=== PATIENT | female | born 1930 | race Caucasian/White ===

== ENCOUNTER 2017-08-08 11:52 | Emergency (ER) | payer MEDICARE, BC ==
[2017-08-08 11:57] VITALS: BP 138/58
--- NOTE | 2017-08-08 12:33 | ER Document Report ---
ED Medical Screen (RME) - General Chief Complaint: Abnormal Lab Results Stated Complaint: ABNORMAL BLOOD WORK Time Seen by Provider: 08/08/17 12:29 Notes: Patient was seen here 2 days ago and diagnosed with pneumonia. Patient is currently at home taking antibiotics. Blood cultures returned positive today for gram positives cocci. Patient was instructed to return to the emergency department for reexamination. She states that she does not feel any better than her previous visit. She states she feels very weak. She denies any pain. She says she has occasional shortness of breath but not currently. She has a mild cough that is nonproductive. No vomiting or diarrhea. TRAVEL OUTSIDE OF THE [place] IN LAST 30 DAYS: No - Related Data Allergies/Adverse Reactions: No Known Allergies Allergy (Verified 08/08/17 11:55) Past Medical History - Social History Chew tobacco use (# tins/day): No Frequency of alcohol use: None Drug Abuse: None - Past Medical History Cardiac Medical History: Reports: Hx Hypertension Endocrine Medical History: Reports: Hx Diabetes Mellitus Type 2 Renal/ Medical History: Denies: Hx Peritoneal Dialysis GI Medical History: Reports: Hx Gastroesophageal Reflux Disease Past Surgical History: Reports: Hx Appendectomy, Hx Cholecystectomy, Hx Hysterectomy, Hx Mastectomy - left side - Immunizations Hx Diphtheria, Pertussis, Tetanus Vaccination: Yes History of Influenza Vaccine for 07/2017 - 12/2017 Season: Yes Physical Exam - Vital signs Vitals: Temp Pulse Resp BP Pulse Ox 97.8 F 85 18 138/58 H 94 08/08/17 11:56 08/08/17 11:56 08/08/17 11:56 08/08/17 11:56 08/08/17 11:56 Course - Vital Signs Vital signs: Temp Pulse Resp BP Pulse Ox 97.8 F 85 18 138/58 H 94 08/08/17 11:56 08/08/17 11:56 08/08/17 11:56 08/08/17 11:56 08/08/17 11:56
[2017-08-08 13:20] LABS: ABSOLUTE BASOPHILS # (AUTO) 0.1 10^3/uL (0.0-0.2); ABSOLUTE EOSINOPHILS # (AUTO) 0.2 10^3/uL (0.0-0.6); ABSOLUTE LYMPHOCYTES (AUTO) 2.6 10^3/uL (0.5-4.7); ABSOLUTE MONOCYTES (AUTO) 0.5 10^3/uL (0.1-1.4); ABSOLUTE NEUT (AUTO) 3.6 10^3/uL (1.7-8.2); BASOPHILS % (AUTO) 0.8 % (0-2); EOSINOPHILS % (AUTO) 2.7 % (0-6); HEMATOCRIT 39.6 % (36.0-47.0); HEMOGLOBIN 13.4 g/dL (12.0-15.5); HGB HCT DIFFERENCE 0.6; LYMPHOCYTES % (AUTO) 37.4 % (13-45); MEAN CORPUSCULAR HEMOGLOBIN 28.9 pg (27.0-33.4); MEAN CORPUSCULAR HGB CONC 33.9 g/dL (32.0-36.0); MEAN CORPUSCULAR VOLUME 85 fl (80-97); RED BLOOD COUNT 4.65 10^6/uL (3.72-5.28); RED CELL DISTRIBUTION WIDTH 13.6 % (11.5-14.0); SEGMENTED NEUTROPHILS % (AUTO) 52.1 % (42-78)
[2017-08-08 13:35] LABS: ALANINE AMINOTRANSFERASE 33 U/L (9-52); ALKALINE PHOSPHATASE 76 U/L (38-126); ANION GAP 14 (5-19); ASPARTATE AMINO TRANSFERASE 20 U/L (14-36); BILIRUBIN,DIRECT 0.3 mg/dL (0.0-0.4); BILIRUBIN,TOTAL 0.4 mg/dL (0.2-1.3); BLOOD UREA NITROGEN 16 mg/dL (7-20); CALCIUM 9.6 mg/dL (8.4-10.2); CARBON DIOXIDE 26 mmol/L (22-30); CHLORIDE 99 mmol/L (98-107); CREATININE RESULT 0.93 mg/dL (0.52-1.25); GLUCOSE 156 mg/dL (75-110); POTASSIUM 4.5 mmol/L (3.6-5.0); SODIUM 138.7 mmol/L (137-145); TOTAL PROTEIN 6.7 g/dL (6.3-8.2)
--- NOTE | 2017-08-08 13:39 | ER Document Report ---
ED General - General Chief Complaint: Abnormal Lab Results Stated Complaint: ABNORMAL BLOOD WORK Time Seen by Provider: 08/08/17 12:29 TRAVEL OUTSIDE OF THE [place] IN LAST 30 DAYS: No - HPI Notes: Patient is an 87-year-old female with a history of dementia who presents the ED for recheck and call back because of a preliminary blood culture lab that came back as gram-positive cocci. + occ dry cough. Patient is accompanied to the ED with daughter. Patient was placed on Levaquin and 1 tablet of Diflucan prior to discharge 2 days ago. Daughter states that she is no longer complaining of any pain, is ambulatory, eating and drinking without any difficulties, urinating and having normal bowel movements, and otherwise at baseline at home. Overall, daughter believes that she is doing much better than 2 days ago. Per daughter: denies any headache, fever, changes in vision/ speech/mentation/hearing, URI, sore throat, chest pain, syncope, shortness of breath, wheeze, dyspnea, abdominal pain, nausea/vomiting/diarrhea, dysuria, hematuria, or rash. - Related Data Allergies/Adverse Reactions: No Known Allergies Allergy (Verified 08/08/17 11:55) Past Medical History - Social History Smoking Status: Never Smoker Chew tobacco use (# tins/day): No Frequency of alcohol use: None Drug Abuse: None Family History: Reviewed & Not Pertinent Patient has suicidal ideation: No Patient has homicidal ideation: No - Past Medical History Cardiac Medical History: Reports: Hx Hypertension Endocrine Medical History: Reports: Hx Diabetes Mellitus Type 2 Renal/ Medical History: Denies: Hx Peritoneal Dialysis GI Medical History: Reports: Hx Gastroesophageal Reflux Disease Past Surgical History: Reports: Hx Appendectomy, Hx Cholecystectomy, Hx Hysterectomy, Hx Mastectomy - left side - Immunizations Hx Diphtheria, Pertussis, Tetanus Vaccination: Yes Review of Systems - Review of Systems Notes: see hpi for pertinent positives/negative per daughter. -: Yes ROS unobtainable due to patient's medical condition Physical Exam - Vital signs Vitals: Temp Pulse Resp BP Pulse Ox 97.8 F 85 18 138/58 H 94 08/08/17 11:56 08/08/17 11:56 08/08/17 11:56 08/08/17 11:56 08/08/17 11:56 Notes: PHYSICAL EXAMINATION: GENERAL: Well-appearing, well-nourished and in no acute distress. alert, talkative, cooperative. HEAD: Atraumatic, normocephalic. EYES: Pupils equal round and reactive to light, extraocular movements intact, sclera anicteric, conjunctiva are normal. ENT: Nares patent and without discharge. oropharynx clear without exudates. No tonsilar hypertrophy or erythema. Moist mucous membranes. NECK: Normal range of motion, supple without lymphadenopathy. No rigidity/ meningismus. LUNGS: Breath sounds clear to auscultation bilaterally and equal. No wheezes rales or rhonchi. HEART: Regular rate and rhythm without murmurs, rubs, gallops. ABDOMEN: Soft, nontender, nondistended abdomen. No guarding, no rebound. No masses appreciated. Normal bowel sounds present. No CVA tenderness bilaterally. Musculoskeletal: FROM to passive/active. Strength 5+/5. Extremities: No cyanosis, clubbing, or edema b/l. Peripheral pulses 2+. Capillary refill less than 3 seconds. NEUROLOGICAL: Cranial nerves grossly intact. Normal speech, normal gait. Normal sensory, motor exams PSYCH: Normal mood, normal affect. SKIN: Warm, Dry, normal turgor, no rashes or lesions noted. Course - Re-evaluation Re-evalutation: 08/08/17 14:[address] Teran: Patient is an afebrile, well-hydrated, 87-year-old female who presents the ED with ongoing pneumonia which is being covered with Levaquin. Patient had a noted preliminary blood culture come back as gram-positive cocci. Vitals are stable w/o any tachycardia or tachypnea and an o2 of 97% on RA. CXR remains relatively unchanged. PE is otherwise unremarkable at this time. Patient appears to be doing well without any respiratory distress or compromise. CBC, CMP are both unremarkable for any acute pathology. At this time, patient does not appear to be having any worsening condition since her evaluation 2 days ago. We will discharge home in stable condition with continued Levaquin as directed with C. difficile precautions reviewed. Conservative measures otherwise with close monitoring. Recheck with your PCM later this week. Return to the ED with any worsening/concerning symptoms otherwise as reviewed in discharge. Daughter is in agreement. - Vital Signs Vital signs: Temp Pulse Resp BP Pulse Ox 97.8 F 85 18 138/58 H 94 08/08/17 11:56 08/08/17 11:56 08/08/17 11:56 08/08/17 11:56 08/08/17 11:56 - Laboratory Result Diagrams: 08/08/17 13:05 08/08/17 13:05 Laboratory results interpreted by me: 08/08/17 13:05 Est GFR (Non-Af Amer) 57 L Glucose 156 H Discharge - Discharge Clinical Impression: Pneumonia Qualifiers: Pneumonia type: due to unspecified organism Laterality: left Lung location: lower lobe of lung Qualified Code(s): J18.1 - Lobar pneumonia, unspecified organism Condition: Stable Disposition: HOME, SELF-CARE Instructions: Levofloxacin, Pneumonia ([facility]) Additional Instructions: Maintain adequate fluid intake Take meds as directed tylenol/ibuprofen as needed over the counter cold medication as needed for symptoms Humidified air may help along with cool-night air for any coughing F/u: with your PCM in 2-3 days for a recheck Return to the ED with any worsening symptoms and/or development of fever, headache, chest pain, palpitations, syncope, worsening cough, shortness of breath, trouble breathing, abdominal pain, n/v/d, blood in stool/urine, not eating/drinking, fatigue, or other worsening symptoms that are concerning to you. Forms: Elevated Blood Pressure Referrals: VLADISLAV LAW MD [ACTIVE STAFF] - Follow up in 3-5 days
--- NOTE | 2017-08-08 13:54 | RADIOLOGY REPORT (SQ) ---
EXAM DESCRIPTION: CHEST PA/LAT COMPLETED DATE/TIME: 08/08/2017 1:41 pm REASON FOR STUDY: weak/cough COMPARISON: 08/06/2017, 07/20/2010 NUMBER OF VIEWS: Two view. TECHNIQUE: Frontal and lateral radiographic views of the chest acquired. LIMITATIONS: None. FINDINGS: LUNGS AND PLEURA: Persistent minimal opacity at the left base either contiguous with or a djacent to the left hemidiaphragm which also obscures the left costophrenic angle. Unchanged since t he recent chest x-ray. MEDIASTINUM AND HILAR STRUCTURES: No masses or contour abnormalities. HEART AND VASCULATURE: Heart normal size. No evidence for failure. BONY STRUCTURES: No acute findings. HARDWARE: None. OTHER: No other significant finding. IMPRESSION: Opacity left base. Differential includes atelectasis or infiltrate with possible associ ated small effusion or possibly developing chronic change or scarring since 2009. Recommend continue d followup by chest x-ray. TECHNICAL DOCUMENTATION: JOB ID: [id number] [employer]- All Rights Reserved
== END 2017-08-08 14:25 | disposition home or self-care (01) ==
LOC: ER 11:52
DX: J18.1 Lobar pneumonia, unspecified organism (principal); F03.90 Unspecified dementia, unspecified severity, without behavioral disturbance, psychotic disturbance, mood disturbance, and anxiety; I10 Essential (primary) hypertension; E11.9 Type 2 diabetes mellitus without complications; Z90.49 Acquired absence of other specified parts of digestive tract; Z90.710 Acquired absence of both cervix and uterus; Z90.12 Acquired absence of left breast and nipple
CPT/HCPCS: 36415; 71020; 80053; 85025; 99284

== ENCOUNTER 2017-08-24 17:01 | Emergency (ER) | payer MEDICARE, BC ==
--- NOTE | 2017-08-24 18:08 | RADIOLOGY REPORT (SQ) ---
EXAM DESCRIPTION: KUB/ABDOMEN (SINGLE VIEW) COMPLETED DATE/TIME: 08/24/2017 5:49 pm REASON FOR STUDY: abd pain distention COMPARISON: None. NUMBER OF VIEWS: One view. TECHNIQUE: Supine radiographic image of the abdomen acquired. LIMITATIONS: None. FINDINGS: BOWEL GAS PATTERN: Normal bowel gas pattern. No dilated loops. CALCIFICATIONS: No suspicious calcifications. SOFT TISSUES: No gross mass or suggestion of organomegaly. HARDWARE: None in the abdomen. BONES: No acute fracture. No worrisome bone lesions. OTHER: No other significant finding. IMPRESSION: NO RADIOGRAPHIC EVIDENCE FOR ACUTE ABDOMINAL DISEASE. TECHNICAL DOCUMENTATION: JOB ID: [id number] [employer]- All Rights Reserved
[2017-08-24 18:10] LABS: APPEARANCE,URINE SLIGHTLY-CLOUDY; BILIRUBIN,URINE NEGATIVE (NEGATIVE); GLUCOSE, URINE 50 mg/dL (NEGATIVE); KETONES,URINE NEGATIVE (NEGATIVE); LEUKOCYTE ESTERASE,URINE LARGE (NEGATIVE); NITRITE,URINE NEGATIVE (NEGATIVE); PROTEIN,URINE NEGATIVE (NEGATIVE); URINE SPECIFIC GRAVITY 1.005; UROBILINOGEN,URINE NEGATIVE mg/dL (<2.0)
[2017-08-24 18:49] LABS: ABSOLUTE BASOPHILS # (AUTO) 0.1 10^3/uL (0.0-0.2); ABSOLUTE EOSINOPHILS # (AUTO) 0.1 10^3/uL (0.0-0.6); ABSOLUTE LYMPHOCYTES (AUTO) 2.1 10^3/uL (0.5-4.7); ABSOLUTE MONOCYTES (AUTO) 0.7 10^3/uL (0.1-1.4); ABSOLUTE NEUT (AUTO) 6.6 10^3/uL (1.7-8.2); BASOPHILS % (AUTO) 0.7 % (0-2); EOSINOPHILS % (AUTO) 1.5 % (0-6); HEMATOCRIT 37.3 % (36.0-47.0); HGB HCT DIFFERENCE 1.7; LYMPHOCYTES % (AUTO) 21.9 % (13-45); MEAN CORPUSCULAR HEMOGLOBIN 29.2 pg (27.0-33.4); MEAN CORPUSCULAR VOLUME 83 fl (80-97); MONOCYTES % (AUTO) 6.9 % (3-13); RED BLOOD COUNT 4.47 10^6/uL (3.72-5.28); RED CELL DISTRIBUTION WIDTH 13.5 % (11.5-14.0); WHITE BLOOD COUNT 9.6 10^3/uL (4.0-10.5)
[2017-08-24 19:10] LABS: ALANINE AMINOTRANSFERASE 28 U/L (9-52); ALBUMIN 3.6 g/dL (3.5-5.0); ALKALINE PHOSPHATASE 96 U/L (38-126); ANION GAP 12 (5-19); ASPARTATE AMINO TRANSFERASE 17 U/L (14-36); BILIRUBIN,DIRECT 0.3 mg/dL (0.0-0.4); BILIRUBIN,TOTAL 0.8 mg/dL (0.2-1.3); BLOOD UREA NITROGEN 12 mg/dL (7-20); CALCIUM 9.1 mg/dL (8.4-10.2); CARBON DIOXIDE 25 mmol/L (22-30); CHLORIDE 96 mmol/L (98-107); CREATININE RESULT 0.84 mg/dL (0.52-1.25); GLUCOSE 176 mg/dL (75-110); LIPASE 60.9 U/L (23-300); POTASSIUM 4.3 mmol/L (3.6-5.0); SODIUM 133.3 mmol/L (137-145)
--- NOTE | 2017-08-24 19:22 | RADIOLOGY REPORT (SQ) ---
EXAM DESCRIPTION: CT ABD/PELVIS NO ORAL OR IV COMPLETED DATE/TIME: 08/24/2017 7:07 pm REASON FOR STUDY: abd pain COMPARISON: 08/06/2017. TECHNIQUE: CT scan of the abdomen and pelvis performed without intravenous or oral contrast. Images reviewed with lung, soft tissue, and bone windows. Reconstructed coronal and sagittal MPR images revi ewed. All images stored on PACS. All CT scanners at this facility use dose modulation, iterative reconstruction, and/or weight based d osing when appropriate to reduce radiation dose to as low as reasonably achievable (ALARA). [facility]: Dose Right [facility]: CareDose [facility]: Dose Right [facility]: Teradose 4D [facility]: Smart [employer] RADIATION DOSE: Up-to-date CT equipment and radiation dose reduction techniques were employed. CTDIv ol: 14.7 mGy. DLP: 801 mGy-cm.mGy. LIMITATIONS: None. FINDINGS: LOWER CHEST: No significant findings. No nodules or infiltrates. NON-CONTRASTED LIVER, SPLEEN, ADRENALS: Evaluation limited by lack of IV contrast. No identified sign ificant masses. PANCREAS: No masses. No peripancreatic inflammatory changes. GALLBLADDER: No identified stones by CT criteria. No inflammatory changes to suggest cholecystitis. RIGHT KIDNEY AND URETER: No suspicious masses. Assessment limited by lack of IV contrast. No signif icant calcifications. No hydronephrosis or hydroureter. LEFT KIDNEY AND URETER: No suspicious masses. Assessment limited by lack of IV contrast. No signifi cant calcifications. No hydronephrosis or hydroureter. AORTA AND RETROPERITONEUM: No aneurysm. No retroperitoneal masses or adenopathy. BOWEL AND PERITONEAL CAVITY: No obvious masses or inflammatory changes. No free fluid. APPENDIX: Surgically absent. PELVIS, BLADDER, AND ABDOMINAL WALL:3.6 cm right adnexal cyst. No free fluid. Bladder normal. BONES: No significant findings. OTHER: No other significant finding. IMPRESSION: 3.6 CM RIGHT ADNEXAL CYST, UNCHANGED FROM THE PRIOR STUDY. NO OTHER SIGNIFICANT OR ACUT E PROCESS IN THE ABDOMEN OR PELVIS. COMMENT: Quality ID # [id number]: Final reports with documentation of one or more dose reduction techniques (e.g., Automated exposure control, adjustment of the mA and/or kV according to patient size, use of iterative reconstruction technique) TECHNICAL DOCUMENTATION: JOB ID: [id number]- All Rights Reserved
[2017-08-24] MEDS ORDERED: CEPHALEXIN 500 MG CAPSULE PO ONE (19:52)
--- NOTE | 2017-08-24 19:54 | ER Document Report ---
ED General - General Chief Complaint: Abdominal Pain Stated Complaint: ABDOMINAL PAIN Time Seen by Provider: 08/24/17 17:24 Mode of Arrival: Ambulatory Information source: Patient Notes: 87-year-old female presents with complaints of abdominal pain. Patient denies any fevers or chills admits to history of constipation. Patient has not had a bowel movement today. Patient is on tramadol and notes when she is given this medication by daughters that the pain is better Family notes the patient's pain for the past week has been moving around from her shoulder to her back to her abdomen but over the past day is now localized generalized abdomen TRAVEL OUTSIDE OF THE [place] IN LAST 30 DAYS: No - HPI Onset: Last week Onset/Duration: Intermittent Quality of pain: Cramping Severity: Mild Pain Level: 1 Associated symptoms: Other Exacerbated by: Denies Relieved by: Denies Similar symptoms previously: No Recently seen / treated by doctor: No - Related Data Allergies/Adverse Reactions: No Known Allergies Allergy (Verified 08/08/17 11:55) Past Medical History - Social History Smoking Status: Never Smoker Cigarette use (# per day): No Chew tobacco use (# tins/day): No Smoking Education Provided: No Family History: Reviewed & Not Pertinent Patient has suicidal ideation: No Patient has homicidal ideation: No - Past Medical History Cardiac Medical History: Reports: Hx Hypertension Pulmonary Medical History: Reports: Hx Pneumonia Endocrine Medical History: Reports: Hx Diabetes Mellitus Type 2 Renal/ Medical History: Denies: Hx Peritoneal Dialysis GI Medical History: Reports: Hx Gastroesophageal Reflux Disease Past Surgical History: Reports: Hx Appendectomy, Hx Cholecystectomy, Hx Hysterectomy, Hx Mastectomy - left side - Immunizations Hx Diphtheria, Pertussis, Tetanus Vaccination: Yes Review of Systems - Review of Systems Notes: REVIEW OF SYSTEMS: CONSTITUTIONAL : Denies fever, chills, or sweats. Denies recent illness. EENT: Denies eye, ear, throat, or mouth pain or symptoms. Denies nasal or sinus congestion or discharge. Denies throat, tongue, or mouth swelling or difficulty swallowing. CARDIOVASCULAR: Denies chest pain. Denies palpitations or racing or irregular heart beat. Denies ankle edema. RESPIRATORY: Denies cough, cold, or chest congestion. Denies shortness of breath, difficulty breathing, or wheezing. GASTROINTESTINAL: Admits to abdominal cramping GENITOURINARY: Denies difficulty urinating, painful urination, burning, frequency, blood in urine, or discharge. FEMALE GENITOURINARY: Denies vaginal bleeding, heavy or abnormal periods, irregular periods. Denies vaginal discharge or odor. MUSCULOSKELETAL: Denies back or neck pain or stiffness. Denies joint pain or swelling. SKIN: Denies rash, lesions or sores. HEMATOLOGIC : Denies easy bruising or bleeding. LYMPHATIC: Denies swollen, enlarged glands. NEUROLOGICAL: Denies confusion or altered mental status. Denies passing out or loss of consciousness. Denies dizziness or lightheadedness. Denies headache. Denies weakness or paralysis or loss of use of either side. Denies problems with gait or speech. Denies sensory loss, numbness, or tingling. Denies seizures. PSYCHIATRIC: Denies anxiety or stress. Denies depression, suicidal ideation, or homicidal ideation. ALL OTHER SYSTEMS REVIEWED AND NEGATIVE. PHYSICAL EXAMINATION: GENERAL: Well-appearing, well-nourished and in no acute distress. HEAD: Atraumatic, normocephalic. EYES: Pupils equal round and reactive to light, extraocular movements intact, conjunctiva are normal. ENT: Nares patent, oropharynx clear without exudates. Moist mucous membranes. NECK: Normal range of motion, supple without lymphadenopathy LUNGS: Breath sounds clear to auscultation bilaterally and equal. No wheezes rales or rhonchi. HEART: Regular rate and rhythm without murmurs ABDOMEN: Soft, nontender, nondistended abdomen. No guarding, no rebound. No masses appreciated. Female : deferred Musculoskeletal: Normal range of motion, no pitting or edema. No cyanosis. NEUROLOGICAL: Cranial nerves grossly intact. Normal speech, normal gait. Normal sensory, motor exams PSYCH: Normal mood, normal affect. SKIN: Warm, Dry, normal turgor, no rashes or lesions noted. Dictation was performed using [employer] voice recognition software Physical Exam - Vital signs Vitals: Pulse BP Pulse Ox 71 110/74 96 08/24/17 20:42 08/24/17 20:42 08/24/17 20:42 Course - Re-evaluation Re-evalutation: 08/25/17 00:12 Patient's examination was quite benign, her symptoms are very vague abdominal pain, I believe that she is constipated however given her age and the fact that she is a poor historian I did perform lab work and x-ray and a CT which noted no significant abnormality that is acute. Her urinalysis does note an infectious process and I will treat this and cultured the urine. Otherwise she looks well was given pain control and was able to be discharged with no difficulty very strict return precautions have been provided to daughter's I have no specific reason to admit this patient given how benign she is at this time After performing a Medical Screening Examination, I estimate there is LOW risk for ACUTE APPENDICITIS, BOWEL OBSTRUCTION, ACUTE CHOLECYSTITIS, PERFORATED DIVERTICULITIS, INCARCERATED HERNIA, PANCREATITIS, PELVIC INFLAMMATORY DISEASE, PERFORATED ULCER, ECTOPIC , or TUBO-OVARIAN ABSCESS, thus I consider the discharge disposition reasonable. Also, there is no evidence or peritonitis , sepsis, or toxicity. I have reevaluated this patient multiple times and no significant life threatening changes are noted. The patient and I have discussed the diagnosis and risks, and we agree with discharging home with close follow-up with the understanding that symptoms and presentations can change. We also discussed returning to the Emergency Department immediately if new or worsening symptoms occur. We have discussed the symptoms which are most concerning (e.g., bloody stool, fever, changing or worsening pain, vomiting) that necessitate immediate return. - Vital Signs Vital signs: Temp Pulse Resp BP Pulse Ox 71 110/74 96 08/24/17 20:42 08/24/17 20:42 08/24/17 20:42 - Laboratory Result Diagrams: 08/24/17 18:27 08/24/17 18:27 Laboratory results interpreted by me: 08/24/17 08/24/17 17:22 18:27 Sodium 133.3 L Chloride 96 L Glucose 176 H Total Protein 6.0 L Urine Glucose (UA) 50 H Ur Leukocyte Esterase LARGE H - Diagnostic Test Radiology reviewed: Image reviewed, Reports reviewed - No acute abnormality report given to family Discharge - Discharge Clinical Impression: Abdominal pain Qualifiers: Abdominal location: generalized Qualified Code(s): R10.84 - Generalized abdominal pain UTI (urinary tract infection) Qualifiers: Urinary tract infection type: acute cystitis Hematuria presence: without hematuria Qualified Code(s): N30.00 - Acute cystitis without hematuria Condition: Stable Disposition: HOME, SELF-CARE Instructions: Abdominal Pain ([facility]), Urinary Tract Infection ([facility]) Prescriptions: Cephalexin Monohydrate [Keflex 500 mg Capsule] 500 mg PO BID 7 Days capsule Referrals: VLADISLAV LAW MD [Primary Care Provider] - Follow up as needed
[2017-08-24] MEDS ORDERED: HYDROCODONE/ACETAMINOPHEN 5-325 MG TABLET PO ONE (19:59)
[2017-08-24 20:46] VITALS: BP 110/74
== END 2017-08-24 20:42 | disposition home or self-care (01) ==
LOC: ER 17:01
DX: N30.00 Acute cystitis without hematuria (principal); R10.84 Generalized abdominal pain; I10 Essential (primary) hypertension; E11.9 Type 2 diabetes mellitus without complications; Z90.49 Acquired absence of other specified parts of digestive tract; Z90.710 Acquired absence of both cervix and uterus; Z90.12 Acquired absence of left breast and nipple
CPT/HCPCS: 99284; 36415; 87086; 83690; 85025; 80053; 81001; 74000; 74176; A9270 ×2

== ENCOUNTER 2017-08-28 23:31 | Inpatient (IN) | payer MEDICARE, BC ==
--- NOTE | 2017-08-28 23:47 | ER Document Report ---
ED General - General Chief Complaint: Fall Stated Complaint: FLANK PAIN Time Seen by Provider: 08/28/17 23:36 Notes: Patient is an 87-year-old female presents with complaints of sliding onto the floor of her bed to get something and she was unable to get back up. Compare makes arrives complaining of a lot of flank pain in her right side. Also some pain into her anterior abdomen. She denies any vomiting. She denies any diarrhea. She denies any chest pain. No shortness of breath. She does have dementia and lives by herself. She is not a very good historian. She does not think she has been having fevers. She denies pain into her her lower extremities. She says that she does have children that live in [place] to check on her occasionally. TRAVEL OUTSIDE OF THE [place] IN LAST 30 DAYS: No - Related Data Allergies/Adverse Reactions: No Known Allergies Allergy (Verified 08/08/17 11:55) Past Medical History - Social History Smoking Status: Never Smoker Frequency of alcohol use: None Drug Abuse: None Family History: Reviewed & Not Pertinent - Past Medical History Cardiac Medical History: Reports: Hx Hypertension Pulmonary Medical History: Reports: Hx Pneumonia Endocrine Medical History: Reports: Hx Diabetes Mellitus Type 2 Renal/ Medical History: Denies: Hx Peritoneal Dialysis GI Medical History: Reports: Hx Gastroesophageal Reflux Disease Past Surgical History: Reports: Hx Appendectomy, Hx Cholecystectomy, Hx Hysterectomy, Hx Mastectomy - left side - Immunizations Hx Diphtheria, Pertussis, Tetanus Vaccination: Yes Review of Systems - Review of Systems Notes: My Normal Review Basic REVIEW OF SYSTEMS: CONSTITUTIONAL : Denies fever, chills, or sweats. Denies recent illness. EENT: Denies eye, ear, throat, or mouth pain or symptoms. Denies nasal or sinus congestion. CARDIOVASCULAR: Denies chest pain. RESPIRATORY: Denies cough, cold, or chest congestion. Denies shortness of breath, difficulty breathing, or wheezing. GASTROINTESTINAL: Right flank pain and abdominal pain. GENITOURINARY: Denies difficulty urinating, painful urination, burning, frequency, or blood in urine. MUSCULOSKELETAL: Denies neck or back pain or joint pain or swelling. SKIN: Denies rash or skin lesions. NEUROLOGICAL: Denies altered mental status or loss of consciousness. Denies headache. Denies weakness or paralysis or loss of use of either side. Denies problems with gait or speech. Denies sensory or motor loss. ALL OTHER SYSTEMS REVIEWED AND NEGATIVE. Physical Exam - Vital signs Vitals: Temp Pulse Resp BP Pulse Ox 97.8 F 84 18 156/79 H 100 08/28/17 23:43 08/28/17 23:43 08/28/17 23:43 08/28/17 23:43 08/28/17 23:43 - Notes Notes: General Appearance: Well nourished, alert, cooperative, no acute distress, moderate obvious discomfort. Vitals: reviewed, See vital signs table. Head: no swelling or tenderness to the head Eyes: PERRL, EOMI, Conjuctiva clear Mouth: No decreasd moisture Neck: Supple, no neck tenderness, No thyromegaly Lungs: No wheezing, No rales, No rhonci, No accessory muscle use, good air exchange bilaterally. Heart: Normal rate, Regular rythm, No murmur, no rub Abdomen: Normal BS, soft, No rigidity, pain palpation is worse over the right flank. She does have some diffuse anterior abdominal tenderness palpation by her abdomen is very soft., No guarding, no rebound, no abdominal masses, no organomegaly Extremities: strength 5/5 in all extremities, good pulses in all extremities, no swelling or tenderness in the extremities, no edema. Skin: warm, dry, appropriate color, no rash Neuro: speech clear, oriented x 2, normal affect, responds appropriately to questions. Patient is able to move all 4 extremities without too much difficulty however she does appear to have some pain when lifting her legs off the bed. Gait not tested because patient is unable to sit up in bed or stand. Course - Re-evaluation Re-evalutation: 08/29/17 08:13 Patient's pain seems to be related to ureteritis which is likely related to an infection in her urine. Patient was placed on antibiotics. Patient still unable to stand up on her own or bear weight due to the pain occurs in her flank. She is 79 years old lives by herself and I do not feel will do well at all at home with this infection and with inability to be able to actually get out of bed on her own. I therefore called the hospitalist, Dr. Saavedra, who agrees to admit the patient. Dictation of this chart was performed using voice recognition software; therefore, there may be some unintended grammatical errors. - Vital Signs Vital signs: Temp Pulse Resp BP Pulse Ox 98.0 F 91 18 146/72 H 100 08/29/17 04:02 08/29/17 04:02 08/29/17 04:02 08/29/17 04:02 08/29/17 04:02 - Laboratory Result Diagrams: 08/28/17 23:50 08/28/17 23:50 Laboratory results interpreted by me: 08/28/17 08/29/17 23:50 00:02 Sodium 134.9 L Chloride 96 L Glucose 212 H Urine Glucose (UA) 150 H Urine Ketones TRACE H Ur Leukocyte Esterase MODERATE H Discharge - Discharge Clinical Impression: Ureteritis UTI (urinary tract infection) Qualifiers: Urinary tract infection type: acute cystitis Hematuria presence: without hematuria Qualified Code(s): N30.00 - Acute cystitis without hematuria Condition: Stable Disposition: ADMITTED OBSERVATION Admitting Provider: Hospitalist Unit Admitted: Medical Floor
[2017-08-28 23:59] LABS: ABSOLUTE BASOPHILS # (AUTO) 0.1 10^3/uL (0.0-0.2); ABSOLUTE EOSINOPHILS # (AUTO) 0.2 10^3/uL (0.0-0.6); ABSOLUTE LYMPHOCYTES (AUTO) 2.1 10^3/uL (0.5-4.7); ABSOLUTE MONOCYTES (AUTO) 0.4 10^3/uL (0.1-1.4); EOSINOPHILS % (AUTO) 3.1 % (0-6); HEMATOCRIT 38.1 % (36.0-47.0); HEMOGLOBIN 12.9 g/dL (12.0-15.5); HGB HCT DIFFERENCE 0.6; MEAN CORPUSCULAR HEMOGLOBIN 28.1 pg (27.0-33.4); MEAN CORPUSCULAR HGB CONC 33.9 g/dL (32.0-36.0); MEAN CORPUSCULAR VOLUME 83 fl (80-97); MONOCYTES % (AUTO) 6.1 % (3-13); RED CELL DISTRIBUTION WIDTH 13.5 % (11.5-14.0); SEGMENTED NEUTROPHILS % (AUTO) 58.8 % (42-78); WHITE BLOOD COUNT 6.8 10^3/uL (4.0-10.5)
[2017-08-29 00:19] LABS: ALANINE AMINOTRANSFERASE 38 U/L (9-52); ALKALINE PHOSPHATASE 103 U/L (38-126); ANION GAP 17 (5-19); ASPARTATE AMINO TRANSFERASE 24 U/L (14-36); BILIRUBIN,DIRECT 0.4 mg/dL (0.0-0.4); BILIRUBIN,TOTAL 0.6 mg/dL (0.2-1.3); BLOOD UREA NITROGEN 12 mg/dL (7-20); CALCIUM 9.8 mg/dL (8.4-10.2); CARBON DIOXIDE 22 mmol/L (22-30); CHLORIDE 96 mmol/L (98-107); CREATINE KINASE 52 U/L (30-135); CREATININE RESULT 0.81 mg/dL (0.52-1.25); GLUCOSE 212 mg/dL (75-110); LIPASE 74.7 U/L (23-300); POTASSIUM 4.8 mmol/L (3.6-5.0); SODIUM 134.9 mmol/L (137-145); TOTAL PROTEIN 6.6 g/dL (6.3-8.2)
[2017-08-29 00:23] LABS: APPEARANCE,URINE CLEAR; BILIRUBIN,URINE NEGATIVE (NEGATIVE); GLUCOSE, URINE 150 mg/dL (NEGATIVE); KETONES,URINE TRACE mg/dL (NEGATIVE); LEUKOCYTE ESTERASE,URINE MODERATE (NEGATIVE); NITRITE,URINE NEGATIVE (NEGATIVE); PROTEIN,URINE NEGATIVE (NEGATIVE); URINE SPECIFIC GRAVITY 1.011; UROBILINOGEN,URINE NEGATIVE mg/dL (<2.0)
[2017-08-29 00:31] LABS: TROPONIN I < 0.012 ng/mL
[2017-08-29] MEDS ORDERED: CEFTRIAXONE INJ 1000 MG VIAL IV ONE (00:40)
[2017-08-29] MEDS ORDERED: NORMAL SALINE 500 ML IV ONE (00:41)
--- NOTE | 2017-08-29 00:41 | RADIOLOGY REPORT (SQ) ---
EXAM DESCRIPTION: CT HEAD WITHOUT COMPLETED DATE/TIME: 08/29/2017 12:29 am REASON FOR STUDY: trauma COMPARISON: 01/20/2014. TECHNIQUE: Axial images acquired through the brain without intravenous contrast. Images reviewed wi th bone, brain and subdural windows. Images stored on PACS. All CT scanners at this facility use dose modulation, iterative reconstruction, and/or weight based d osing when appropriate to reduce radiation dose to as low as reasonably achievable (ALARA). [facility]: Dose Right [facility]: CareDose [facility]: Dose Right [facility]: Teradose 4D [facility]: [employer] RADIATION DOSE: Up-to-date CT equipment and radiation dose reduction techniques were employed. CTDIv ol: 49.0 mGy. DLP: 783 mGy-cm. mGy. LIMITATIONS: None. FINDINGS: VENTRICLES: Normal size and contour. CEREBRUM: No masses. No hemorrhage. No midline shift. No evidence for acute infarction. Mild white matter microangiopathy. Mild cerebral volume loss. CEREBELLUM: No masses. No hemorrhage. No alteration of density. No evidence for acute infarction. EXTRAAXIAL SPACES: No fluid collections. No masses. ORBITS AND GLOBE: No intra- or extraconal masses. Normal contour of globe without masses. CALVARIUM: No fracture. PARANASAL SINUSES: No fluid or mucosal thickening. SOFT TISSUES: No mass or hematoma. OTHER: No other significant finding. IMPRESSION: No acute findings. EVIDENCE OF ACUTE STROKE: NO. COMMENT: Quality ID # [id number]: Final reports with documentation of one or more dose reduction techniques (e.g., Automated exposure control, adjustment of the mA and/or kV according to patient size, use of iterative reconstruction technique) TECHNICAL DOCUMENTATION: JOB ID: [id number] [employer]- All Rights Reserved
--- NOTE | 2017-08-29 00:43 | RADIOLOGY REPORT (SQ) ---
EXAM DESCRIPTION: PELVIS AP COMPLETED DATE/TIME: 08/29/2017 12:29 am REASON FOR STUDY: trauma COMPARISON: CT, 08/24/2017. NUMBER OF VIEWS: One view TECHNIQUE: AP Pelvis LIMITATIONS: None. FINDINGS: MINERALIZATION: Normal. HIPS: No acute fracture or dislocation. No worrisome bone lesions. PELVIS AND SACRUM: No acute fracture or dislocation. No worrisome bone lesions. PUBIS AND ISCHIUM: No acute fracture. LOWER LUMBAR SPINE: No significant findings as visualized. SOFT TISSUES: No findings. OTHER: No other significant finding. IMPRESSION: NEGATIVE STUDY OF THE PELVIS. TECHNICAL DOCUMENTATION: JOB ID: [id number] [employer]- All Rights Reserved
--- NOTE | 2017-08-29 00:46 | RADIOLOGY REPORT (SQ) ---
EXAM DESCRIPTION: CT CERVICAL SPINE WITHOUT COMPLETED DATE/TIME: 08/29/2017 12:29 am REASON FOR STUDY: trauma COMPARISON: None. TECHNIQUE: Axial images acquired through the cervical spine without intravenous contrast. Images re viewed with lung, soft tissue and bone windows. Reconstructed coronal and sagittal MPR images review ed. Images stored on PACS. All CT scanners at this facility use dose modulation, iterative reconstruction, and/or weight based d osing when appropriate to reduce radiation dose to as low as reasonably achievable (ALARA). [facility]: Dose Right [facility]: CareDose [facility]: Dose Right [facility]: Teradose 4D [facility]: [employer] RADIATION DOSE: Up-to-date CT equipment and radiation dose reduction techniques were employed. CTDIv ol: 18.8 mGy. DLP: 473 mGy-cm. mGy. LIMITATIONS: None. FINDINGS: ALIGNMENT: 0.2 cm degenerative retrolisthesis of the C4 and C5 levels. MINERALIZATION: Osteopenia. VERTEBRAL BODIES: No fractures or dislocation. DISCS: [id number] disc desiccation worst between the C4 and C6 levels with the mild-moderate sp inal and foraminal canal stenoses. FACETS, LATERAL MASSES, POSTERIOR ELEMENTS: No fractures. No dislocation. No acute findings. HARDWARE: None in the spine. VISUALIZED RIBS: No fractures. LUNG APICES AND SOFT TISSUES: No significant or acute findings. OTHER: Atherosclerosis. IMPRESSION: No acute findings. TECHNICAL DOCUMENTATION: JOB ID: [id number] Quality ID # [id number]: Final reports with documentation of one or more dose reduction techniques (e.g., Au tomated exposure control, adjustment of the mA and/or kV according to patient size, use of iterative reconstruction technique) 2010 [employer]- All Rights Reserved
--- NOTE | 2017-08-29 03:05 | RADIOLOGY REPORT (SQ) ---
EXAM DESCRIPTION: CT ABD/PELVIS WITH IV ONLY COMPLETED DATE/TIME: 08/29/2017 2:29 am REASON FOR STUDY: R flank and abdominal pain COMPARISON: 08/24/2017. 08/06/2017. TECHNIQUE: CT scan of the abdomen and pelvis performed using helical scanning technique with dynamic intravenous contrast injection. No oral contrast. Images reviewed with lung, soft tissue, and bone windows. Reconstructed coronal and sagittal MPR images reviewed. Delayed images for evaluation of the urinary system also acquired. All images stored on PACS. All CT scanners at this facility use dose modulation, iterative reconstruction, and/or weight based d osing when appropriate to reduce radiation dose to as low as reasonably achievable (ALARA). [facility]: Dose Right [facility]: CareDose [facility]: Dose Right [facility]: Teradose 4D [facility]: [employer] CONTRAST TYPE AND DOSE: contrast/concentration: Isovue 370.00 mg/ml; Total Contrast Delivered: 98.0 ml; Total Saline Delivered: 69.0 ml RENAL FUNCTION: Creatinine 0.8 RADIATION DOSE: Up-to-date CT equipment and radiation dose reduction techniques were employed. CTDIv ol: 20.1 - 20.1 mGy. DLP: 2185 mGy-cm.. LIMITATIONS: Arm positioning artifact. FINDINGS: LOWER CHEST: No significant findings. No nodules or infiltrates. LIVER: Normal size. No masses. No dilated ducts. SPLEEN: Normal size. No focal lesions. PANCREAS: No masses. No significant calcifications. No adjacent inflammation or peripancreatic fluid collections. Pancreatic duct not dilated. Moderate atrophy. GALLBLADDER: No identified stones by CT criteria. No inflammatory changes to suggest cholecystitis. ADRENAL GLANDS: No significant masses or asymmetry. RIGHT KIDNEY AND URETER: No solid masses. No significant calcifications. No hydronephrosis or hyd roureter. Mild diffuse distal ureteral wall thickening, image 58 of series 5. LEFT KIDNEY AND URETER: No solid masses. No significant calcifications. No hydronephrosis or hydr oureter. AORTA AND VESSELS: No aneurysm. No dissection. Renal arteries, SMA, celiac without stenosis. RETROPERITONEUM: No retroperitoneal adenopathy, hemorrhage or masses. BOWEL AND PERITONEAL CAVITY: No masses or inflammatory changes. No free fluid or peritoneal masses. Moderate colonic diverticulosis. Some retained fluid in the colon with air-fluid levels. APPENDIX: Normal. PELVIS: 3.6 cm right adnexal cystic component without significant interval change compared with prior CT, 08/24/2017. No free fluid. Normal bladder. ABDOMINAL WALL: No masses. No hernias. BONES: No significant or acute findings. OTHER: Left lateral thoracic clips. IMPRESSION: 1. Mild right distal ureteral wall thickening may indicate ureteritis. 2. A stable 3. 6 cm cystic component of the right adnexa probably due to a prominent follicular cyst. Cannot exclud e other neoplasm. Correlation with pelvic sonogram recommended. TECHNICAL DOCUMENTATION: JOB ID: [id number] Quality ID # [id number]: Final reports with documentation of one or more dose reduction techniques (e.g., Au tomated exposure control, adjustment of the mA and/or kV according to patient size, use of iterative reconstruction technique) 2010 [employer]- All Rights Reserved
[2017-08-29] MEDS ORDERED: ACETAMINOPHEN 325 MG TABLET PO ONE (03:46)
[2017-08-29] MEDS ORDERED: ACETAMINOPHEN 325 MG TABLET PO PRN (03:47)
[2017-08-29] MEDS ORDERED: ONDANSETRON HCL INJ/PF 4 MG/2 ML SDV IV PRN ×2 (03:47→12:00)
[2017-08-29] MEDS ORDERED: MAG HYDROX/AL HYDROX/SIMETH SUSP 30 ML UDCUP PO PRN ×2 (03:47→12:00)
[2017-08-29] MEDS ORDERED: DEXTROSE 40% GEL 15 GM TUBE PO PRN ×2 (05:26)
[2017-08-29] MEDS ORDERED: DEXTROSE 50%-WATER 25 GM/50 ML DISP.SYRIN IV PRN ×2 (05:26)
[2017-08-29] MEDS ORDERED: GLUCAGON,HUMAN RECOMB 1 MG INJ IM PRN (05:26)
--- NOTE | 2017-08-29 05:35 | PDOC H&P ---
History of Present Illness Admission Date/PCP: 08/29/17 03:58 Patient complains of: Right-sided abdominal pain History of Present Illness: TIFFANY FITZGERALD is a 87 year old female with a history of diabetes and advanced dementia but socially appropriate living independently. Who presents after sliding onto the floor and unable to get back on her feet prompting her call to EMS via life alert. In the emergency room she is a very vague historian but complains of right-sided abdominal pain, denies chest pain, shortness of breath nausea or vomiting. In the emergency room she has a urinalysis suggestive of urinary tract infection and a CT negative for stone, pyelonephritis or abscess but shows distal ureteritis. She has intractable abdominal pain unable to stand subsequently started on empiric antibiotics refer the hospitalist for admission. Past Medical History Cardiac Medical History: Reports: Hypertension Pulmonary Medical History: Reports: Pneumonia Endocrine Medical History: Reports: Diabetes Mellitus Type 2 GI Medical History: Reports: Gastroesophageal Reflux Disease Psychiatric Medical History: Reports: Dementia Past Surgical History Past Surgical History: Reports: Appendectomy, Cholecystectomy, Hysterectomy, Mastectomy - left side Social History Information Source: Emergency Med Personnel, [facility] Records Smoking Status: Never Smoker Frequency of Alcohol Use: None Hx Recreational Drug Use: No Drugs: None - Advance Directive Resuscitation Status: Full Code Family History Family History: Other - Unobtainable Parental Family History Reviewed: Yes - Unobtainable Children Family History Reviewed: Yes - Unobtainable Sibling(s) Family History Reviewed.: Yes - Unobtainable Medication/Allergy Home Medications: Prednisone 20 mg PO DAILY #2 tablet 07/16/13 Fluconazole [Diflucan] 150 mg PO ONCE PRN #1 tablet 08/06/17 Levofloxacin [Levaquin 750 mg Tablet] 750 mg PO DAILY #10 tablet 08/06/17 Cephalexin Monohydrate [Keflex 500 mg Capsule] 500 mg PO BID 7 Days capsule Allergies/Adverse Reactions: No Known Allergies Allergy (Verified 08/08/17 11:55) Review of Systems ROS unobtainable: Due to mental status - Advanced dementia Constitutional: ABSENT: chills, fever(s), headache(s), weight gain, weight loss Eyes: ABSENT: visual disturbances Ears: ABSENT: hearing changes Cardiovascular: ABSENT: chest pain, dyspnea on exertion, edema, orthropnea, palpitations Respiratory: ABSENT: cough, hemoptysis Gastrointestinal: ABSENT: abdominal pain, constipation, diarrhea, hematemesis, hematochezia, nausea, vomiting Genitourinary: ABSENT: dysuria, hematuria Musculoskeletal: ABSENT: joint swelling Integumentary: ABSENT: rash, wounds Neurological: ABSENT: abnormal gait, abnormal speech, confusion, dizziness, focal weakness, syncope Psychiatric: ABSENT: anxiety, depression, homidical ideation, suicidal ideation Endocrine: ABSENT: cold intolerance, heat intolerance, polydipsia, polyuria Hematologic/Lymphatic: ABSENT: easy bleeding, easy bruising Physical Exam Vital Signs: Temp Pulse Resp BP Pulse Ox 98.0 F 91 18 146/72 H 100 08/29/17 04:02 08/29/17 04:02 08/29/17 04:02 08/29/17 04:02 08/29/17 04:02 General appearance: PRESENT: cooperative, mild distress Head exam: PRESENT: atraumatic, normocephalic Eye exam: PRESENT: conjunctiva pink, EOMI, PERRLA. ABSENT: scleral icterus Ear exam: PRESENT: normal external ear exam Mouth exam: PRESENT: moist, tongue midline Neck exam: ABSENT: carotid bruit, JVD, lymphadenopathy, thyromegaly Respiratory exam: PRESENT: clear to auscultation margie. ABSENT: rales, rhonchi, wheezes Cardiovascular exam: PRESENT: RRR. ABSENT: diastolic murmur, rubs, systolic murmur Pulses: PRESENT: normal dorsalis pedis pul Vascular exam: PRESENT: normal capillary refill GI/Abdominal exam: PRESENT: distended, hyperactive bowel sounds, soft, tenderness. ABSENT: firm, guarding, rebound, rigid Rectal exam: PRESENT: deferred Extremities exam: PRESENT: full ROM. ABSENT: calf tenderness, clubbing, pedal edema Neurological exam: PRESENT: alert, awake, oriented to person, CN II-XII grossly intact. ABSENT: motor sensory deficit Psychiatric exam: PRESENT: appropriate affect, normal mood. ABSENT: homicidal ideation, suicidal ideation Skin exam: PRESENT: dry, intact, warm. ABSENT: cyanosis, rash Results Impressions: Head CT 08/28/17 23:44 IMPRESSION: No acute findings. EVIDENCE OF ACUTE STROKE: NO. Pelvis X-Ray 08/28/17 23:44 IMPRESSION: NEGATIVE STUDY OF THE PELVIS. Cervical Spine CT 08/28/17 23:45 IMPRESSION: No acute findings. Abdomen/Pelvis CT 08/29/17 00:41 IMPRESSION: 1. Mild right distal ureteral wall thickening may indicate ureteritis. 2. A stable 3.6 cm cystic component of the right adnexa probably due to a prominent follicular cyst. Cannot exclude other neoplasm. Correlation with pelvic sonogram recommended. Assessment & Plan - Diagnosis (1) Abdominal pain Qualifiers: Abdominal location: generalized Qualified Code(s): R10.84 - Generalized abdominal pain Is this a current diagnosis for this admission?: Yes Plan: Likely secondary to distal urethritis with urinary tract infection, symptomatic management and empiric antibiotics follow-up CBC, blood and urine culture (2) UTI (urinary tract infection) Qualifiers: Urinary tract infection type: acute cystitis Hematuria presence: without hematuria Qualified Code(s): N30.00 - Acute cystitis without hematuria Is this a current diagnosis for this admission?: Yes Plan: Please see #1 (3) Dementia Is this a current diagnosis for this admission?: Yes Plan: Currently unable to function independently, discharge planning consult for consideration of placement. - Time Time Spent: 30 to 50 Minutes
[2017-08-29] MEDS: HEPARIN SOD (PORCINE) 5,000 UNIT/ML 1 ML SYRINGE SUBCUT SCH ×3 (06:16→22:49)
[2017-08-29] MEDS: DOCUSATE SODIUM 100 MG CAPSULE PO SCH ×2 (09:24→19:45)
[2017-08-29] MEDS: CEFTRIAXONE 1 GM/D5W RTU 1 GM/50 ML RTUPB IV SCH (09:24)
[2017-08-29] MEDS: NORMAL SALINE 1000 ML 1,000 ML IV SCH (22:49)
[2017-08-29] MEDS: INSULIN LISPRO 100 UNIT/ML 3 ML VIAL SUBCUT PRN (22:49)
[2017-08-30] MEDS: ACETAMINOPHEN 325 MG TABLET PO PRN ×2 (02:09→21:51)
[2017-08-30 06:19] LABS: ABSOLUTE EOSINOPHILS # (AUTO) 0.3 10^3/uL (0.0-0.6); ABSOLUTE LYMPHOCYTES (AUTO) 2.2 10^3/uL (0.5-4.7); ABSOLUTE MONOCYTES (AUTO) 0.4 10^3/uL (0.1-1.4); ABSOLUTE NEUT (AUTO) 2.7 10^3/uL (1.7-8.2); BASOPHILS % (AUTO) 0.7 % (0-2); EOSINOPHILS % (AUTO) 4.7 % (0-6); HEMATOCRIT 35.7 % (36.0-47.0); HEMOGLOBIN 12.5 g/dL (12.0-15.5); HGB HCT DIFFERENCE 1.8; LYMPHOCYTES % (AUTO) 38.6 % (13-45); MEAN CORPUSCULAR HEMOGLOBIN 29.2 pg (27.0-33.4); MEAN CORPUSCULAR HGB CONC 34.9 g/dL (32.0-36.0); MEAN CORPUSCULAR VOLUME 84 fl (80-97); MONOCYTES % (AUTO) 7.3 % (3-13); RED BLOOD COUNT 4.27 10^6/uL (3.72-5.28); RED CELL DISTRIBUTION WIDTH 13.4 % (11.5-14.0); SEGMENTED NEUTROPHILS % (AUTO) 48.7 % (42-78); WHITE BLOOD COUNT 5.6 10^3/uL (4.0-10.5)
[2017-08-30] MEDS: HEPARIN SOD (PORCINE) 5,000 UNIT/ML 1 ML SYRINGE SUBCUT SCH ×3 (07:14→21:51)
[2017-08-30] MEDS ORDERED: TRAMADOL HCL PO PRN (08:46)
[2017-08-30] MEDS ORDERED: ACETAMINOPHEN PO PRN (08:46)
[2017-08-30] MEDS: INSULIN LISPRO 100 UNIT/ML 3 ML VIAL SUBCUT PRN ×2 (09:29→13:12)
[2017-08-30] MEDS: AMLODIPINE BESYLATE 2.5 MG TABLET PO SCH (09:31)
[2017-08-30] MEDS: GLIPIZIDE XL 5 MG TAB.ER.24 PO SCH (09:31)
[2017-08-30] MEDS: DOCUSATE SODIUM 100 MG CAPSULE PO SCH ×2 (09:32→17:03)
[2017-08-30] MEDS: CEFTRIAXONE 1 GM/D5W RTU 1 GM/50 ML RTUPB IV SCH (09:33)
[2017-08-30] MEDS ORDERED: AMLODIPINE BESYLATE PO SCH (10:00)
[2017-08-30] MEDS ORDERED: [UNRECOGNIZED DRUG - OTHER] PO SCH (10:00)
[2017-08-30] MEDS ORDERED: BENAZEPRIL PO SCH (10:00)
[2017-08-30] MEDS: BENAZEPRIL HCL 10 MG TABLET PO SCH (10:21)
[2017-08-30] MEDS: METFORMIN HCL 500 MG TABLET PO SCH ×2 (13:13→21:51)
--- NOTE | 2017-08-30 18:53 | PDOC PROGRESS REPORT ---
Subjective Progress Note for:: 08/30/17 Subjective:: Patient is known to my practice and admitted for abdominal pain, UTI and dementia. She presented with incidental fall by sliding to the floor and unable to get up by herself. There was associated complain about right sided abdominal pain without any other significant symptoms. Her initial assessment was suggestive of UTI with distal ureteritis on abdomen/pelvic CT scan. She is currently on IV Rocephin coverage. Family at bedside reported episodes of more than usual confusion and paranoid thoughts regarding her property. No fever or chills. No chest pain or difficulty with breathing. No nausea or vomiting. P.O intake have been fair. Physical Exam Vital Signs: Temp Pulse Resp BP Pulse Ox 98.1 F 86 18 142/65 H 97 08/30/17 16:12 08/30/17 16:12 08/30/17 16:12 08/30/17 16:12 08/30/17 16:12 Intake & Output 08/29/17 08/30/17 08/31/17 06:59 06:59 06:59 Intake Total 691 2488 Output Total 550 Balance 691 1938 Weight 79.8 kg General appearance: PRESENT: no acute distress, cooperative Head exam: PRESENT: atraumatic, normocephalic Eye exam: PRESENT: conjunctiva pink, EOMI, PERRLA. ABSENT: scleral icterus Mouth exam: PRESENT: moist Respiratory exam: PRESENT: clear to auscultation margie Cardiovascular exam: PRESENT: RRR. ABSENT: diastolic murmur, rubs, systolic murmur Vascular exam: PRESENT: normal capillary refill. ABSENT: pallor GI/Abdominal exam: PRESENT: normal bowel sounds, soft. ABSENT: distended, guarding, mass, organolmegaly, rebound, tenderness Extremities exam: ABSENT: pedal edema Musculoskeletal exam: PRESENT: normal inspection Neurological exam: PRESENT: alert - but demonstrate obvious baseline memory impairment, awake Psychiatric exam: PRESENT: appropriate affect, normal mood. ABSENT: homicidal ideation, suicidal ideation Skin exam: PRESENT: dry, intact, warm. ABSENT: cyanosis, rash Results Laboratory Results: 08/30/17 05:31 08/30/17 05:31 WBC 5.6 RBC 4.27 Hgb 12.5 Hct 35.7 L MCV 84 MCH 29.2 MCHC 34.9 RDW 13.4 Plt Count 325 Seg Neutrophils % 48.7 Lymphocytes % 38.6 Monocytes % 7.3 Eosinophils % 4.7 Basophils % 0.7 Absolute Neutrophils 2.7 Absolute Lymphocytes 2.2 Absolute Monocytes 0.4 Absolute Eosinophils 0.3 Absolute Basophils 0.0 Impressions: Head CT 08/28/17 23:44 IMPRESSION: No acute findings. EVIDENCE OF ACUTE STROKE: NO. Pelvis X-Ray 08/28/17 23:44 IMPRESSION: NEGATIVE STUDY OF THE PELVIS. Cervical Spine CT 08/28/17 23:45 IMPRESSION: No acute findings. Abdomen/Pelvis CT 08/29/17 00:41 IMPRESSION: 1. Mild right distal ureteral wall thickening may indicate ureteritis. 2. A stable 3.6 cm cystic component of the right adnexa probably due to a prominent follicular cyst. Cannot exclude other neoplasm. Correlation with pelvic sonogram recommended. Assessment & Plan - Diagnosis (1) Fall at home Qualifiers: Encounter type: initial encounter Qualified Code(s): W19.XXXA - Unspecified fall, initial encounter; Y92.099 - Unspecified place in other non- institutional residence as the place of occurrence of the external cause; Y92.099 - Unspecified place in other non-institutional residence as the place of occurrence of the external cause Is this a current diagnosis for this admission?: Yes Plan: I will request physical therapy evaluation for ambulatory safety and rehabilitation as needed. (2) Alzheimer's dementia with behavioral disturbance Qualifiers: Alzheimer's disease onset: late-onset Qualified Code(s): G30.1 - Alzheimer' s disease with late onset; F02.81 - Dementia in other diseases classified elsewhere with behavioral disturbance; F02.81 - Dementia in other diseases classified elsewhere with behavioral disturbance; F02.81 - Dementia in other diseases classified elsewhere with behavioral disturbance Is this a current diagnosis for this admission?: Yes Plan: I had extensive discussion with family at bedside with regard to disposition plan. I emphasized need for supervised environment upon discharge. Family will look into [facility] placement versus share responsibility of care if patient want to stay in the community. I emphasized the danger of patient continue driving during this visit. (3) UTI (urinary tract infection) Qualifiers: Urinary tract infection type: acute cystitis Hematuria presence: without hematuria Qualified Code(s): N30.00 - Acute cystitis without hematuria Is this a current diagnosis for this admission?: Yes Plan: Continue IV Rocephin coverage pending culture findings. Start on Diflucan therapy for Catalina UTI in view of urine culture report and her morbidities. (4) HTN (hypertension) Qualifiers: Hypertension type: essential hypertension Qualified Code(s): I10 - Essential (primary) hypertension Is this a current diagnosis for this admission?: Yes Plan: Continue current medication management. (5) Diabetes mellitus type 2 in nonobese Is this a current diagnosis for this admission?: Yes Plan: Continue current medication management. (6) Generalized osteoarthritis of multiple sites Is this a current diagnosis for this admission?: Yes Plan: Continue current medication management. - Time Time Spent with patient: 35 or more minutes Medications reviewed and adjusted accordingly: Yes Anticipated discharge: Other Within: Other - Inpatient Certification Based on my medical assessment, after consideration of the patient's comorbidities, presenting symptoms, or acuity I expect that the services needed warrant INPATIENT care.: Yes I certify that my determination is in accordance with my understanding of Medicare's requirements for reasonable and necessary INPATIENT services [42 CFR 412.3e].: Yes Medical Necessity: Need Close Monitoring Due to Risk of Patient Decompensation, Need For IV Fluids, Need for IV Antibiotics, Risk of Complication if Not Cared For in Hospital Post Hospital Care: D/C Custodial Worker Documentation - Plan Summary Plan Summary: Continue current medication management. See attending physician orders.
[2017-08-30] MEDS: FLUCONAZOLE 100 MG TABLET PO SCH (21:51)
[2017-08-31] MEDS: HEPARIN SOD (PORCINE) 5,000 UNIT/ML 1 ML SYRINGE SUBCUT SCH ×3 (05:16→21:27)
[2017-08-31] MEDS: METFORMIN HCL 500 MG TABLET PO SCH ×3 (05:16→21:27)
[2017-08-31 05:21] LABS: ABSOLUTE EOSINOPHILS # (AUTO) 0.3 10^3/uL (0.0-0.6); ABSOLUTE LYMPHOCYTES (AUTO) 2.7 10^3/uL (0.5-4.7); ABSOLUTE MONOCYTES (AUTO) 0.4 10^3/uL (0.1-1.4); ABSOLUTE NEUT (AUTO) 3.3 10^3/uL (1.7-8.2); BASOPHILS % (AUTO) 0.6 % (0-2); EOSINOPHILS % (AUTO) 4.1 % (0-6); HEMATOCRIT 36.5 % (36.0-47.0); HEMOGLOBIN 12.3 g/dL (12.0-15.5); HGB HCT DIFFERENCE 0.4; LYMPHOCYTES % (AUTO) 40.2 % (13-45); MEAN CORPUSCULAR HEMOGLOBIN 28.3 pg (27.0-33.4); MEAN CORPUSCULAR HGB CONC 33.7 g/dL (32.0-36.0); MEAN CORPUSCULAR VOLUME 84 fl (80-97); MONOCYTES % (AUTO) 6.1 % (3-13); RED BLOOD COUNT 4.34 10^6/uL (3.72-5.28); RED CELL DISTRIBUTION WIDTH 13.6 % (11.5-14.0); WHITE BLOOD COUNT 6.8 10^3/uL (4.0-10.5)
[2017-08-31 05:54] LABS: ANION GAP 13 (5-19); BLOOD UREA NITROGEN 12 mg/dL (7-20); CALCIUM 9.2 mg/dL (8.4-10.2); CARBON DIOXIDE 23 mmol/L (22-30); CHLORIDE 100 mmol/L (98-107); CREATININE RESULT 0.77 mg/dL (0.52-1.25); GLUCOSE 143 mg/dL (75-110); POTASSIUM 4.3 mmol/L (3.6-5.0); SODIUM 135.8 mmol/L (137-145)
[2017-08-31] MEDS ORDERED: METFORMIN HCL 1500 MG PO SCH (08:00)
--- NOTE | 2017-08-31 10:26 | PDOC PROGRESS REPORT ---
Subjective Progress Note for:: 08/31/17 Subjective:: Patient is currently doing fair still on and off confused Patient's denied any chest pain denied any shortness of the breath Very extensive discussed with the patient's daughter on the bedside with patient 's demonstrates getting more worse since last several months and the patient's at this point to unable to take care of herself and the family member does not have any good support Physical Exam Vital Signs: Temp Pulse Resp BP Pulse Ox 97.9 F 82 18 143/75 H 99 08/31/17 08:00 08/31/17 08:00 08/31/17 08:00 08/31/17 08:00 08/31/17 08:00 Intake & Output 08/30/17 08/31/17 09/01/17 06:59 06:59 06:59 Intake Total 500 Balance 500 Weight 79.8 kg General appearance: PRESENT: no acute distress, well-developed, well-nourished Head exam: PRESENT: atraumatic, normocephalic Eye exam: PRESENT: conjunctiva pink, EOMI, PERRLA. ABSENT: scleral icterus Ear exam: PRESENT: normal external ear exam Mouth exam: PRESENT: moist, tongue midline Neck exam: PRESENT: full ROM. ABSENT: carotid bruit, JVD, lymphadenopathy, thyromegaly Respiratory exam: PRESENT: clear to auscultation margie Cardiovascular exam: PRESENT: RRR. ABSENT: diastolic murmur, rubs, systolic murmur Pulses: PRESENT: normal dorsalis pedis pul, +2 pedal pulses bilateral Vascular exam: PRESENT: normal capillary refill GI/Abdominal exam: PRESENT: normal bowel sounds, soft. ABSENT: distended, guarding, mass, organolmegaly, rebound, tenderness Rectal exam: PRESENT: deferred Neurological exam: PRESENT: alert, awake, oriented to person. ABSENT: motor sensory deficit Psychiatric exam: PRESENT: appropriate affect, normal mood. ABSENT: homicidal ideation, suicidal ideation Skin exam: PRESENT: dry, intact, warm. ABSENT: cyanosis, rash Results Laboratory Results: 08/31/17 04:32 08/31/17 04:32 08/31/17 08/31/17 04:32 04:32 WBC 6.8 RBC 4.34 Hgb 12.3 Hct 36.5 MCV 84 MCH 28.3 MCHC 33.7 RDW 13.6 Plt Count 314 Seg Neutrophils % 49.0 Lymphocytes % 40.2 Monocytes % 6.1 Eosinophils % 4.1 Basophils % 0.6 Absolute Neutrophils 3.3 Absolute Lymphocytes 2.7 Absolute Monocytes 0.4 Absolute Eosinophils 0.3 Absolute Basophils 0.0 Sodium 135.8 L Potassium 4.3 Chloride 100 Carbon Dioxide 23 Anion Gap 13 BUN 12 Creatinine 0.77 Est GFR ( Amer) > 60 Est GFR (Non-Af Amer) > 60 Glucose 143 H Calcium 9.2 Impressions: Head CT 08/28/17 23:44 IMPRESSION: No acute findings. EVIDENCE OF ACUTE STROKE: NO. Pelvis X-Ray 08/28/17 23:44 IMPRESSION: NEGATIVE STUDY OF THE PELVIS. Cervical Spine CT 08/28/17 23:45 IMPRESSION: No acute findings. Abdomen/Pelvis CT 08/29/17 00:41 IMPRESSION: 1. Mild right distal ureteral wall thickening may indicate ureteritis. 2. A stable 3.6 cm cystic component of the right adnexa probably due to a prominent follicular cyst. Cannot exclude other neoplasm. Correlation with pelvic sonogram recommended. Assessment & Plan - Diagnosis (1) UTI (urinary tract infection) Qualifiers: Urinary tract infection type: acute cystitis Hematuria presence: without hematuria Qualified Code(s): N30.00 - Acute cystitis without hematuria Is this a current diagnosis for this admission?: Yes Plan: Continues to IV antibiotic (2) Diabetes mellitus type 2 in nonobese Is this a current diagnosis for this admission?: Yes Plan: Continues to current medications (3) HTN (hypertension) Qualifiers: Hypertension type: essential hypertension Qualified Code(s): I10 - Essential (primary) hypertension Is this a current diagnosis for this admission?: Yes Plan: Currently all stable (4) Alzheimer's dementia with behavioral disturbance Qualifiers: Alzheimer's disease onset: late-onset Qualified Code(s): G30.1 - Alzheimer' s disease with late onset; F02.81 - Dementia in other diseases classified elsewhere with behavioral disturbance; F02.81 - Dementia in other diseases classified elsewhere with behavioral disturbance; F02.81 - Dementia in other diseases classified elsewhere with behavioral disturbance Is this a current diagnosis for this admission?: Yes Plan: Right external discussed with the patient and family member I think patient unable to take care of herself due to the worsening dementia patients might get a benefit to the rehab's with this frequent fall or frequent infections (5) Confusion Is this a current diagnosis for this admission?: Yes Plan: Most likely from the urinary tract infections and worsening the dementia - Time Time Spent with patient: 15-24 minutes Medications reviewed and adjusted accordingly: Yes Anticipated discharge: SNF Within: Other - Inpatient Certification Medical Necessity: Need Close Monitoring Due to Risk of Patient Decompensation, Need For IV Fluids, Need for IV Antibiotics Post Hospital Care: D/C Spud Grader Documentation - Plan Summary Plan Summary: See other MD orders
[2017-08-31] MEDS: GLIPIZIDE XL 5 MG TAB.ER.24 PO SCH (11:19)
[2017-08-31] MEDS: AMLODIPINE BESYLATE 2.5 MG TABLET PO SCH (11:19)
[2017-08-31] MEDS: CEFTRIAXONE 1 GM/D5W RTU 1 GM/50 ML RTUPB IV SCH (11:20)
[2017-08-31] MEDS: DOCUSATE SODIUM 100 MG CAPSULE PO SCH ×2 (11:20→18:20)
[2017-08-31] MEDS: ACETAMINOPHEN 325 MG TABLET PO PRN (11:33)
[2017-08-31] MEDS: INSULIN LISPRO 100 UNIT/ML 3 ML VIAL SUBCUT PRN (12:30)
[2017-08-31] MEDS: BENAZEPRIL HCL 10 MG TABLET PO SCH (12:30)
[2017-08-31] MEDS: NORMAL SALINE 1000 ML 1,000 ML IV SCH (14:56)
[2017-08-31] MEDS ORDERED: CETIRIZINE 10 MG TABLET PO ONE (15:45)
--- NOTE | 2017-08-31 18:26 | RADIOLOGY REPORT (SQ) ---
EXAM DESCRIPTION: CT HEAD WITHOUT COMPLETED DATE/TIME: 08/31/2017 6:08 pm REASON FOR STUDY: TINNITUS, HEAD PRESSURE COMPARISON: CT brain 08/29/2017, 01/20/2014 TECHNIQUE: Axial images acquired through the brain without intravenous contrast. Images reviewed wi th bone, brain and subdural windows. Images stored on PACS. All CT scanners at this facility use dose modulation, iterative reconstruction, and/or weight based d osing when appropriate to reduce radiation dose to as low as reasonably achievable (ALARA). [facility]: Dose Right [facility]: CareDose [facility]: Dose Right [facility]: Teradose 4D [facility]: Smart [employer] RADIATION DOSE: CT Rad equipment meets quality standard of care and radiation dose reduction techniq ues were employed. CTDIvol: 64.6 mGy. DLP: 1163 mGy-cm. mGy. LIMITATIONS: Mild motion artifact. FINDINGS: VENTRICLES: Normal size and contour. CEREBRUM: No masses. No hemorrhage. No midline shift. No evidence for acute infarction. Normal gra y/white matter differentiation. No areas of low density in the white matter. CEREBELLUM: No masses. No hemorrhage. No alteration of density. No evidence for acute infarction. EXTRAAXIAL SPACES: No fluid collections. No masses. ORBITS AND GLOBE: No intra- or extraconal masses. Normal contour of globe without masses. CALVARIUM: No fracture. PARANASAL SINUSES: No fluid or mucosal thickening. SOFT TISSUES: No mass or hematoma. OTHER: No other significant finding. IMPRESSION: Limited negative study EVIDENCE OF ACUTE STROKE: NO. COMMENT: Quality ID # [id number]: Final reports with documentation of one or more dose reduction techniques (e.g., Automated exposure control, adjustment of the mA and/or kV according to patient size, use of iterative reconstruction technique) TECHNICAL DOCUMENTATION: JOB ID: [id number] [employer]- All Rights Reserved
[2017-08-31] MEDS: FLUCONAZOLE 100 MG TABLET PO SCH (21:27)
[2017-09-01] MEDS: HEPARIN SOD (PORCINE) 5,000 UNIT/ML 1 ML SYRINGE SUBCUT SCH ×3 (05:25→22:17)
[2017-09-01] MEDS: METFORMIN HCL 500 MG TABLET PO SCH ×3 (05:25→22:17)
[2017-09-01 06:46] LABS: ABSOLUTE BASOPHILS # (AUTO) 0.1 10^3/uL (0.0-0.2); ABSOLUTE EOSINOPHILS # (AUTO) 0.3 10^3/uL (0.0-0.6); ABSOLUTE LYMPHOCYTES (AUTO) 2.2 10^3/uL (0.5-4.7); ABSOLUTE MONOCYTES (AUTO) 0.4 10^3/uL (0.1-1.4); ABSOLUTE NEUT (AUTO) 3.4 10^3/uL (1.7-8.2); BASOPHILS % (AUTO) 0.9 % (0-2); EOSINOPHILS % (AUTO) 4.5 % (0-6); HEMATOCRIT 37.1 % (36.0-47.0); HEMOGLOBIN 12.3 g/dL (12.0-15.5); HGB HCT DIFFERENCE -0.2; LYMPHOCYTES % (AUTO) 34.3 % (13-45); MEAN CORPUSCULAR HGB CONC 33.3 g/dL (32.0-36.0); MEAN CORPUSCULAR VOLUME 84 fl (80-97); MONOCYTES % (AUTO) 6.9 % (3-13); RED BLOOD COUNT 4.41 10^6/uL (3.72-5.28); RED CELL DISTRIBUTION WIDTH 13.7 % (11.5-14.0); SEGMENTED NEUTROPHILS % (AUTO) 53.4 % (42-78); WHITE BLOOD COUNT 6.4 10^3/uL (4.0-10.5)
[2017-09-01] MEDS: DOCUSATE SODIUM 100 MG CAPSULE PO SCH ×2 (10:55→18:45)
[2017-09-01] MEDS: CETIRIZINE 10 MG TABLET PO SCH (10:55)
[2017-09-01] MEDS: CEFTRIAXONE 1 GM/D5W RTU 1 GM/50 ML RTUPB IV SCH (10:56)
[2017-09-01] MEDS: AMLODIPINE BESYLATE 2.5 MG TABLET PO SCH (10:56)
[2017-09-01] MEDS: BENAZEPRIL HCL 10 MG TABLET PO SCH (10:56)
[2017-09-01] MEDS: GLIPIZIDE XL 5 MG TAB.ER.24 PO SCH (10:56)
--- NOTE | 2017-09-01 11:02 | PDOC PROGRESS REPORT ---
Subjective Progress Note for:: 09/01/17 Subjective:: Patient is feeling much better patient's denied any headache denied any chest pain denied any abdominal pain Patient CT head was done yesterday was negative Positive bowel movement Physical Exam Vital Signs: Temp Pulse Resp BP Pulse Ox 98.0 F 76 17 146/69 H 95 09/01/17 07:50 09/01/17 07:50 09/01/17 07:50 09/01/17 07:50 09/01/17 07:50 Intake & Output 08/31/17 09/01/17 09/02/17 06:59 06:59 06:59 Intake Total 500 1141 Output Total 700 Balance 500 441 Weight 79.8 kg 79.8 kg General appearance: PRESENT: no acute distress, well-developed, well-nourished Head exam: PRESENT: atraumatic, normocephalic Eye exam: PRESENT: conjunctiva pink, EOMI, PERRLA. ABSENT: scleral icterus Ear exam: PRESENT: normal external ear exam Mouth exam: PRESENT: moist, tongue midline Neck exam: PRESENT: full ROM. ABSENT: carotid bruit, JVD, lymphadenopathy, thyromegaly Respiratory exam: PRESENT: clear to auscultation margie Cardiovascular exam: PRESENT: RRR. ABSENT: diastolic murmur, rubs, systolic murmur Pulses: PRESENT: normal dorsalis pedis pul, +2 pedal pulses bilateral Vascular exam: PRESENT: normal capillary refill GI/Abdominal exam: PRESENT: distended, normal bowel sounds, soft. ABSENT: guarding, mass, organolmegaly, rebound, tenderness Rectal exam: PRESENT: deferred Extremities exam: ABSENT: pedal edema Musculoskeletal exam: PRESENT: ambulatory Neurological exam: PRESENT: alert, awake, oriented to person, oriented to place , oriented to time, oriented to situation, CN II-XII grossly intact. ABSENT: motor sensory deficit Psychiatric exam: PRESENT: appropriate affect, normal mood. ABSENT: homicidal ideation, suicidal ideation Skin exam: PRESENT: dry, intact, warm. ABSENT: cyanosis, rash Results Laboratory Results: 09/01/17 06:12 08/31/17 04:32 09/01/17 06:12 WBC 6.4 RBC 4.41 Hgb 12.3 Hct 37.1 MCV 84 MCH 28.0 MCHC 33.3 RDW 13.7 Plt Count 337 Seg Neutrophils % 53.4 Lymphocytes % 34.3 Monocytes % 6.9 Eosinophils % 4.5 Basophils % 0.9 Absolute Neutrophils 3.4 Absolute Lymphocytes 2.2 Absolute Monocytes 0.4 Absolute Eosinophils 0.3 Absolute Basophils 0.1 Impressions: Pelvis X-Ray 08/28/17 23:44 IMPRESSION: NEGATIVE STUDY OF THE PELVIS. Cervical Spine CT 08/28/17 23:45 IMPRESSION: No acute findings. Abdomen/Pelvis CT 08/29/17 00:41 IMPRESSION: 1. Mild right distal ureteral wall thickening may indicate ureteritis. 2. A stable 3.6 cm cystic component of the right adnexa probably due to a prominent follicular cyst. Cannot exclude other neoplasm. Correlation with pelvic sonogram recommended. Head CT 08/31/17 14:21 IMPRESSION: Limited negative study EVIDENCE OF ACUTE STROKE: NO. Assessment & Plan - Diagnosis (1) UTI (urinary tract infection) Qualifiers: Urinary tract infection type: acute cystitis Hematuria presence: without hematuria Qualified Code(s): N30.00 - Acute cystitis without hematuria Is this a current diagnosis for this admission?: Yes Plan: Continues to IV antibiotic (2) Diabetes mellitus type 2 in nonobese Is this a current diagnosis for this admission?: Yes Plan: Continues to current medications (3) HTN (hypertension) Qualifiers: Hypertension type: essential hypertension Qualified Code(s): I10 - Essential (primary) hypertension Is this a current diagnosis for this admission?: Yes Plan: Currently all stable (4) Alzheimer's dementia with behavioral disturbance Qualifiers: Alzheimer's disease onset: late-onset Qualified Code(s): G30.1 - Alzheimer' s disease with late onset; F02.81 - Dementia in other diseases classified elsewhere with behavioral disturbance; F02.81 - Dementia in other diseases classified elsewhere with behavioral disturbance; F02.81 - Dementia in other diseases classified elsewhere with behavioral disturbance Is this a current diagnosis for this admission?: Yes Plan: Right external discussed with the patient and family member I think patient unable to take care of herself due to the worsening dementia patients might get a benefit to the rehab's with this frequent fall or frequent infections (5) Confusion Is this a current diagnosis for this admission?: Yes Plan: Patient CT head was all negative most likely from UTI - Time Time Spent with patient: 15-24 minutes Medications reviewed and adjusted accordingly: Yes Anticipated discharge: Other Within: Other - Inpatient Certification Medical Necessity: Need Close Monitoring Due to Risk of Patient Decompensation, Need for IV Antibiotics Post Hospital Care: D/C [employer] Consultant Documentation - Plan Summary Plan Summary: Continues to current medications discussed with the family and the bedside
[2017-09-01] MEDS: INSULIN LISPRO 100 UNIT/ML 3 ML VIAL SUBCUT PRN (12:28)
[2017-09-01] MEDS: FLUCONAZOLE 100 MG TABLET PO SCH (20:16)
[2017-09-02 06:11] LABS: ABSOLUTE BASOPHILS # (AUTO) 0.1 10^3/uL (0.0-0.2); ABSOLUTE EOSINOPHILS # (AUTO) 0.3 10^3/uL (0.0-0.6); ABSOLUTE LYMPHOCYTES (AUTO) 2.4 10^3/uL (0.5-4.7); ABSOLUTE MONOCYTES (AUTO) 0.5 10^3/uL (0.1-1.4); ABSOLUTE NEUT (AUTO) 3.6 10^3/uL (1.7-8.2); BASOPHILS % (AUTO) 0.8 % (0-2); EOSINOPHILS % (AUTO) 4.3 % (0-6); HEMATOCRIT 36.1 % (36.0-47.0); HEMOGLOBIN 12.5 g/dL (12.0-15.5); HGB HCT DIFFERENCE 1.4; LYMPHOCYTES % (AUTO) 34.8 % (13-45); MEAN CORPUSCULAR HEMOGLOBIN 28.8 pg (27.0-33.4); MEAN CORPUSCULAR HGB CONC 34.7 g/dL (32.0-36.0); MEAN CORPUSCULAR VOLUME 83 fl (80-97); MONOCYTES % (AUTO) 7.4 % (3-13); RED BLOOD COUNT 4.33 10^6/uL (3.72-5.28); RED CELL DISTRIBUTION WIDTH 13.7 % (11.5-14.0); SEGMENTED NEUTROPHILS % (AUTO) 52.7 % (42-78); WHITE BLOOD COUNT 6.9 10^3/uL (4.0-10.5)
[2017-09-02] MEDS: METFORMIN HCL 500 MG TABLET PO SCH ×3 (06:36→22:49)
[2017-09-02] MEDS: HEPARIN SOD (PORCINE) 5,000 UNIT/ML 1 ML SYRINGE SUBCUT SCH ×3 (06:37→22:49)
[2017-09-02 06:52] LABS: ANION GAP 11 (5-19); BLOOD UREA NITROGEN 11 mg/dL (7-20); CALCIUM 9.6 mg/dL (8.4-10.2); CARBON DIOXIDE 26 mmol/L (22-30); CHLORIDE 99 mmol/L (98-107); CREATININE RESULT 0.78 mg/dL (0.52-1.25); GLUCOSE 135 mg/dL (75-110); POTASSIUM 4.8 mmol/L (3.6-5.0)
[2017-09-02] MEDS: CETIRIZINE 10 MG TABLET PO SCH (10:03)
[2017-09-02] MEDS: GLIPIZIDE XL 5 MG TAB.ER.24 PO SCH (10:03)
[2017-09-02] MEDS: BENAZEPRIL HCL 10 MG TABLET PO SCH (10:03)
[2017-09-02] MEDS: AMLODIPINE BESYLATE 2.5 MG TABLET PO SCH (10:03)
[2017-09-02] MEDS: DOCUSATE SODIUM 100 MG CAPSULE PO SCH ×2 (10:03→17:26)
[2017-09-02] MEDS: POLYETHYLENE GLYCOL 3350 POWDER 17 GM/1 PACKET PO SCH (10:03)
[2017-09-02] MEDS: ACETAMINOPHEN 325 MG TABLET PO PRN (10:03)
[2017-09-02] MEDS: CEFTRIAXONE 1 GM/D5W RTU 1 GM/50 ML RTUPB IV SCH (10:03)
--- NOTE | 2017-09-02 10:30 | PDOC PROGRESS REPORT ---
Subjective Progress Note for:: 09/02/17 Subjective:: Patient is feeling much better patient's denied any headache denied any chest pain denied any abdominal pain Patient CT head was done yesterday was negative Positive bowel movement Physical Exam Vital Signs: Temp Pulse Resp BP Pulse Ox 97.4 F 87 18 142/64 H 96 09/02/17 08:22 09/02/17 08:22 09/02/17 08:22 09/02/17 08:22 09/02/17 08:22 Intake & Output 09/01/17 09/02/17 09/03/17 06:59 06:59 06:59 Intake Total 1141 1800 Output Total 700 300 Balance 441 1500 Weight 79.8 kg 79.7 kg General appearance: PRESENT: no acute distress, well-developed, well-nourished Head exam: PRESENT: atraumatic, normocephalic Eye exam: PRESENT: conjunctiva pink, EOMI, PERRLA. ABSENT: scleral icterus Ear exam: PRESENT: normal external ear exam Mouth exam: PRESENT: moist, tongue midline Neck exam: PRESENT: full ROM. ABSENT: carotid bruit, JVD, lymphadenopathy, thyromegaly Respiratory exam: PRESENT: clear to auscultation margie Cardiovascular exam: PRESENT: RRR. ABSENT: diastolic murmur, rubs, systolic murmur Pulses: PRESENT: normal dorsalis pedis pul, +2 pedal pulses bilateral Vascular exam: PRESENT: normal capillary refill GI/Abdominal exam: PRESENT: distended, normal bowel sounds, soft. ABSENT: guarding, mass, organolmegaly, rebound, tenderness Rectal exam: PRESENT: deferred Extremities exam: ABSENT: full ROM, left AKA, right AKA, left BKA, right BKA, calf tenderness, joint swelling, pedal edema, tenderness, other Musculoskeletal exam: PRESENT: ambulatory Neurological exam: PRESENT: alert, awake, oriented to person, oriented to place , oriented to time, oriented to situation, CN II-XII grossly intact. ABSENT: motor sensory deficit Psychiatric exam: PRESENT: appropriate affect, normal mood. ABSENT: homicidal ideation, suicidal ideation Skin exam: PRESENT: dry, intact, warm. ABSENT: cyanosis, rash Results Laboratory Results: 09/02/17 05:58 09/02/17 05:58 09/02/17 09/02/17 05:58 05:58 WBC 6.9 RBC 4.33 Hgb 12.5 Hct 36.1 MCV 83 MCH 28.8 MCHC 34.7 RDW 13.7 Plt Count 334 Seg Neutrophils % 52.7 Lymphocytes % 34.8 Monocytes % 7.4 Eosinophils % 4.3 Basophils % 0.8 Absolute Neutrophils 3.6 Absolute Lymphocytes 2.4 Absolute Monocytes 0.5 Absolute Eosinophils 0.3 Absolute Basophils 0.1 Sodium 136.0 L Potassium 4.8 Chloride 99 Carbon Dioxide 26 Anion Gap 11 BUN 11 Creatinine 0.78 Est GFR ( Amer) > 60 Est GFR (Non-Af Amer) > 60 Glucose 135 H Calcium 9.6 Impressions: Pelvis X-Ray 08/28/17 23:44 IMPRESSION: NEGATIVE STUDY OF THE PELVIS. Cervical Spine CT 08/28/17 23:45 IMPRESSION: No acute findings. Abdomen/Pelvis CT 08/29/17 00:41 IMPRESSION: 1. Mild right distal ureteral wall thickening may indicate ureteritis. 2. A stable 3.6 cm cystic component of the right adnexa probably due to a prominent follicular cyst. Cannot exclude other neoplasm. Correlation with pelvic sonogram recommended. Head CT 08/31/17 14:21 IMPRESSION: Limited negative study EVIDENCE OF ACUTE STROKE: NO. Assessment & Plan - Diagnosis (1) UTI (urinary tract infection) Qualifiers: Urinary tract infection type: acute cystitis Hematuria presence: without hematuria Qualified Code(s): N30.00 - Acute cystitis without hematuria Is this a current diagnosis for this admission?: Yes Plan: Continues to IV antibiotic (2) Diabetes mellitus type 2 in nonobese Is this a current diagnosis for this admission?: Yes Plan: Continues to current medications (3) HTN (hypertension) Qualifiers: Hypertension type: essential hypertension Qualified Code(s): I10 - Essential (primary) hypertension Is this a current diagnosis for this admission?: Yes Plan: Currently all stable (4) Alzheimer's dementia with behavioral disturbance Qualifiers: Alzheimer's disease onset: late-onset Qualified Code(s): G30.1 - Alzheimer' s disease with late onset; F02.81 - Dementia in other diseases classified elsewhere with behavioral disturbance; F02.81 - Dementia in other diseases classified elsewhere with behavioral disturbance; F02.81 - Dementia in other diseases classified elsewhere with behavioral disturbance Is this a current diagnosis for this admission?: Yes Plan: Right external discussed with the patient and family member I think patient unable to take care of herself due to the worsening dementia patients might get a benefit to the rehab's with this frequent fall or frequent infections (5) Confusion Is this a current diagnosis for this admission?: Yes - Time Time Spent with patient: 15-24 minutes Medications reviewed and adjusted accordingly: Yes Anticipated discharge: Other Within: Other - Inpatient Certification Medical Necessity: Need Close Monitoring Due to Risk of Patient Decompensation Post Hospital Care: D/C [employer] Operator Documentation - Plan Summary Plan Summary: Order the KUB discussed with the family and the bedside
--- NOTE | 2017-09-02 12:58 | RADIOLOGY REPORT (SQ) ---
EXAM DESCRIPTION: KUB/ABDOMEN (SINGLE VIEW) COMPLETED DATE/TIME: 09/02/2017 12:50 pm REASON FOR STUDY: abd dist COMPARISON: 08/24/2017. FINDINGS: Single view supine portably obtained view of the abdomen and pelvis. Gaseous distention of the re- done thinned colon. Minimal gas in small bowel but overall nonobstruct yesy pattern. No suspicious calcifications. IMPRESSION: Mild gaseous distension, predominantly in the colon. TECHNICAL DOCUMENTATION: JOB ID: [id number]
[2017-09-02] MEDS: INSULIN LISPRO 100 UNIT/ML 3 ML VIAL SUBCUT PRN ×2 (13:19→17:26)
[2017-09-02] MEDS ORDERED: TUBERCULIN,PURIF.PROT.DERIV. 5 TU/0.1 ML TEST 1 ML VIAL ID ONE ×2 (18:30→18:50)
[2017-09-02] MEDS: FLUCONAZOLE 100 MG TABLET PO SCH (20:46)
[2017-09-03 06:11] LABS: ABSOLUTE BASOPHILS # (AUTO) 0.1 10^3/uL (0.0-0.2); ABSOLUTE EOSINOPHILS # (AUTO) 0.3 10^3/uL (0.0-0.6); ABSOLUTE LYMPHOCYTES (AUTO) 2.3 10^3/uL (0.5-4.7); ABSOLUTE MONOCYTES (AUTO) 0.5 10^3/uL (0.1-1.4); ABSOLUTE NEUT (AUTO) 3.4 10^3/uL (1.7-8.2); BASOPHILS % (AUTO) 0.8 % (0-2); EOSINOPHILS % (AUTO) 4.3 % (0-6); HEMATOCRIT 37.8 % (36.0-47.0); HEMOGLOBIN 12.9 g/dL (12.0-15.5); HGB HCT DIFFERENCE 0.9; LYMPHOCYTES % (AUTO) 35.3 % (13-45); MEAN CORPUSCULAR HEMOGLOBIN 28.5 pg (27.0-33.4); MEAN CORPUSCULAR HGB CONC 34.2 g/dL (32.0-36.0); MEAN CORPUSCULAR VOLUME 83 fl (80-97); RED BLOOD COUNT 4.53 10^6/uL (3.72-5.28); RED CELL DISTRIBUTION WIDTH 13.9 % (11.5-14.0); SEGMENTED NEUTROPHILS % (AUTO) 51.6 % (42-78); WHITE BLOOD COUNT 6.5 10^3/uL (4.0-10.5)
[2017-09-03] MEDS: METFORMIN HCL 500 MG TABLET PO SCH ×3 (06:34→21:59)
[2017-09-03] MEDS: HEPARIN SOD (PORCINE) 5,000 UNIT/ML 1 ML SYRINGE SUBCUT SCH ×3 (06:34→21:58)
[2017-09-03 06:39] LABS: ANION GAP 13 (5-19); BLOOD UREA NITROGEN 10 mg/dL (7-20); CALCIUM 9.4 mg/dL (8.4-10.2); CARBON DIOXIDE 24 mmol/L (22-30); CHLORIDE 97 mmol/L (98-107); CREATININE RESULT 0.76 mg/dL (0.52-1.25); GLUCOSE 134 mg/dL (75-110); POTASSIUM 4.7 mmol/L (3.6-5.0); SODIUM 134.2 mmol/L (137-145)
--- NOTE | 2017-09-03 10:39 | PDOC PROGRESS REPORT ---
Subjective Progress Note for:: 09/03/17 Subjective:: Patient is currently doing well X-ray KUB shows some mild gaseous distention's Denied any abdominal pain no nausea no vomiting Physical Exam Vital Signs: Temp Pulse Resp BP Pulse Ox 98.2 F 86 18 134/56 H 95 09/03/17 07:27 09/03/17 07:27 09/03/17 07:27 09/03/17 07:27 09/03/17 07:27 Intake & Output 09/02/17 09/03/17 09/04/17 06:59 06:59 06:59 Intake Total 1800 1595 Output Total 300 Balance 1500 1595 Weight 79.7 kg General appearance: PRESENT: no acute distress, well-developed, well-nourished Head exam: PRESENT: atraumatic, normocephalic Eye exam: PRESENT: conjunctiva pink, EOMI, PERRLA. ABSENT: scleral icterus Ear exam: PRESENT: normal external ear exam Mouth exam: PRESENT: moist, tongue midline Neck exam: PRESENT: full ROM. ABSENT: carotid bruit, JVD, lymphadenopathy, thyromegaly Respiratory exam: PRESENT: clear to auscultation margie Cardiovascular exam: PRESENT: RRR. ABSENT: diastolic murmur, rubs, systolic murmur Pulses: PRESENT: normal dorsalis pedis pul, +2 pedal pulses bilateral Vascular exam: PRESENT: normal capillary refill GI/Abdominal exam: PRESENT: distended, normal bowel sounds, soft. ABSENT: guarding, mass, organolmegaly, rebound, tenderness Rectal exam: PRESENT: deferred Neurological exam: PRESENT: alert, awake, oriented to person, oriented to place , oriented to time, oriented to situation, CN II-XII grossly intact. ABSENT: motor sensory deficit Psychiatric exam: PRESENT: appropriate affect, normal mood. ABSENT: homicidal ideation, suicidal ideation Skin exam: PRESENT: dry, intact, warm. ABSENT: cyanosis, rash Results Laboratory Results: 09/03/17 05:32 09/03/17 05:32 09/03/17 09/03/17 05:32 05:32 WBC 6.5 RBC 4.53 Hgb 12.9 Hct 37.8 MCV 83 MCH 28.5 MCHC 34.2 RDW 13.9 Plt Count 328 Seg Neutrophils % 51.6 Lymphocytes % 35.3 Monocytes % 8.0 Eosinophils % 4.3 Basophils % 0.8 Absolute Neutrophils 3.4 Absolute Lymphocytes 2.3 Absolute Monocytes 0.5 Absolute Eosinophils 0.3 Absolute Basophils 0.1 Sodium 134.2 L Potassium 4.7 Chloride 97 L Carbon Dioxide 24 Anion Gap 13 BUN 10 Creatinine 0.76 Est GFR ( Amer) > 60 Est GFR (Non-Af Amer) > 60 Glucose 134 H Calcium 9.4 Impressions: Pelvis X-Ray 08/28/17 23:44 IMPRESSION: NEGATIVE STUDY OF THE PELVIS. Cervical Spine CT 08/28/17 23:45 IMPRESSION: No acute findings. Abdomen/Pelvis CT 08/29/17 00:41 IMPRESSION: 1. Mild right distal ureteral wall thickening may indicate ureteritis. 2. A stable 3.6 cm cystic component of the right adnexa probably due to a prominent follicular cyst. Cannot exclude other neoplasm. Correlation with pelvic sonogram recommended. Head CT 08/31/17 14:21 IMPRESSION: Limited negative study EVIDENCE OF ACUTE STROKE: NO. KUB X-Ray 09/02/17 00:00 IMPRESSION: Mild gaseous distension, predominantly in the colon. Assessment & Plan - Diagnosis (1) UTI (urinary tract infection) Qualifiers: Urinary tract infection type: acute cystitis Hematuria presence: without hematuria Qualified Code(s): N30.00 - Acute cystitis without hematuria Is this a current diagnosis for this admission?: Yes Plan: Continues to IV antibiotic (2) Diabetes mellitus type 2 in nonobese Is this a current diagnosis for this admission?: Yes Plan: Continues to current medications (3) HTN (hypertension) Qualifiers: Hypertension type: essential hypertension Qualified Code(s): I10 - Essential (primary) hypertension Is this a current diagnosis for this admission?: Yes Plan: Currently all stable (4) Alzheimer's dementia with behavioral disturbance Qualifiers: Alzheimer's disease onset: late-onset Qualified Code(s): G30.1 - Alzheimer' s disease with late onset; F02.81 - Dementia in other diseases classified elsewhere with behavioral disturbance; F02.81 - Dementia in other diseases classified elsewhere with behavioral disturbance; F02.81 - Dementia in other diseases classified elsewhere with behavioral disturbance Is this a current diagnosis for this admission?: Yes Plan: Right external discussed with the patient and family member I think patient unable to take care of herself due to the worsening dementia patients might get a benefit to the rehab's with this frequent fall or frequent infections (5) Confusion Is this a current diagnosis for this admission?: Yes - Time Time Spent with patient: 15-24 minutes Medications reviewed and adjusted accordingly: Yes Anticipated discharge: SNF Within: Other - Inpatient Certification Medical Necessity: Need Close Monitoring Due to Risk of Patient Decompensation Post Hospital Care: D/C [employer] Documentation - Plan Summary Plan Summary: Add Gas-X Continues to current medication
[2017-09-03] MEDS: DOCUSATE SODIUM 100 MG CAPSULE PO SCH ×2 (10:57→18:11)
[2017-09-03] MEDS: GLIPIZIDE XL 5 MG TAB.ER.24 PO SCH (10:58)
[2017-09-03] MEDS: CETIRIZINE 10 MG TABLET PO SCH (10:58)
[2017-09-03] MEDS: AMLODIPINE BESYLATE 2.5 MG TABLET PO SCH (10:58)
[2017-09-03] MEDS: CEFTRIAXONE 1 GM/D5W RTU 1 GM/50 ML RTUPB IV SCH (10:59)
[2017-09-03] MEDS: POLYETHYLENE GLYCOL 3350 POWDER 17 GM/1 PACKET PO SCH (10:59)
[2017-09-03] MEDS: BENAZEPRIL HCL 10 MG TABLET PO SCH (11:00)
[2017-09-03] MEDS: ACETAMINOPHEN 325 MG TABLET PO PRN ×2 (11:19→18:08)
[2017-09-03] MEDS: SIMETHICONE 80 MG TAB.CHEW PO SCH (18:09)
[2017-09-03] MEDS: FLUCONAZOLE 100 MG TABLET PO SCH (20:27)
[2017-09-04] MEDS: METFORMIN HCL 500 MG TABLET PO SCH ×3 (06:50→21:56)
[2017-09-04] MEDS: HEPARIN SOD (PORCINE) 5,000 UNIT/ML 1 ML SYRINGE SUBCUT SCH ×3 (06:51→21:56)
[2017-09-04 07:37] LABS: ANION GAP 13 (5-19); BLOOD UREA NITROGEN 12 mg/dL (7-20); CALCIUM 9.3 mg/dL (8.4-10.2); CARBON DIOXIDE 25 mmol/L (22-30); CHLORIDE 95 mmol/L (98-107); CREATININE RESULT 0.83 mg/dL (0.52-1.25); GLUCOSE 142 mg/dL (75-110); POTASSIUM 4.7 mmol/L (3.6-5.0); SODIUM 132.7 mmol/L (137-145)
[2017-09-04] MEDS: CETIRIZINE 10 MG TABLET PO SCH (10:10)
[2017-09-04] MEDS: SIMETHICONE 80 MG TAB.CHEW PO SCH ×2 (10:10→17:16)
[2017-09-04] MEDS: POLYETHYLENE GLYCOL 3350 POWDER 17 GM/1 PACKET PO SCH (10:10)
[2017-09-04] MEDS: CEFTRIAXONE 1 GM/D5W RTU 1 GM/50 ML RTUPB IV SCH (10:10)
[2017-09-04] MEDS: GLIPIZIDE XL 5 MG TAB.ER.24 PO SCH (10:11)
[2017-09-04] MEDS: AMLODIPINE BESYLATE 2.5 MG TABLET PO SCH (10:11)
[2017-09-04] MEDS: BENAZEPRIL HCL 10 MG TABLET PO SCH (10:11)
[2017-09-04] MEDS: DOCUSATE SODIUM 100 MG CAPSULE PO SCH ×2 (10:11→17:16)
[2017-09-04] MEDS: INSULIN LISPRO 100 UNIT/ML 3 ML VIAL SUBCUT PRN ×2 (11:24→17:16)
--- NOTE | 2017-09-04 17:47 | PDOC PROGRESS REPORT ---
Subjective Progress Note for:: 09/04/17 Subjective:: Patient denied any chest pain or difficulty with breathing. Remain on Rocephin therapy for presumed UTI. No reported fever or chills. No abdominal pain, nausea or vomiting. Participating in physical therapy session. Reason For Visit: FALL AT HOME; UTI; DEMENTIA WITH BEHAVIORAL Physical Exam Vital Signs: Temp Pulse Resp BP Pulse Ox 98.2 F 81 16 134/56 H 97 09/04/17 16:00 09/04/17 16:00 09/04/17 16:00 09/04/17 16:00 09/04/17 16:00 Intake & Output 09/03/17 09/04/17 09/05/17 06:59 06:59 06:59 Intake Total 1595 1465 Output Total 3 Balance 1595 1462 Weight 79.7 kg Physical Exam: General appearance: PRESENT: no acute distress, cooperative Head exam: PRESENT: atraumatic, normocephalic Eye exam: PRESENT: conjunctiva pink, EOMI, PERRLA. ABSENT: scleral icterus Mouth exam: PRESENT: moist Respiratory exam: PRESENT: clear to auscultation margie Cardiovascular exam: PRESENT: RRR. ABSENT: diastolic murmur, rubs, systolic murmur Vascular exam: PRESENT: normal capillary refill. ABSENT: pallor GI/Abdominal exam: PRESENT: normal bowel sounds, soft. ABSENT: distended, guarding, mass, organomegaly, rebound, tenderness Extremities exam: ABSENT: pedal edema Musculoskeletal exam: PRESENT: normal inspection Neurological exam: PRESENT: alert - but demonstrate obvious baseline memory impairment, awake Psychiatric exam: PRESENT: appropriate affect, normal mood. ABSENT: homicidal ideation, suicidal ideation Skin exam: PRESENT: dry, intact, warm. ABSENT: cyanosis, rash Results Laboratory Results: 09/03/17 05:32 09/04/17 06:59 09/04/17 06:59 Sodium 132.7 L Potassium 4.7 Chloride 95 L Carbon Dioxide 25 Anion Gap 13 BUN 12 Creatinine 0.83 Est GFR ( Amer) > 60 Est GFR (Non-Af Amer) > 60 Glucose 142 H Calcium 9.3 Impressions: Pelvis X-Ray 08/28/17 23:44 IMPRESSION: NEGATIVE STUDY OF THE PELVIS. Cervical Spine CT 08/28/17 23:45 IMPRESSION: No acute findings. Abdomen/Pelvis CT 08/29/17 00:41 IMPRESSION: 1. Mild right distal ureteral wall thickening may indicate ureteritis. 2. A stable 3.6 cm cystic component of the right adnexa probably due to a prominent follicular cyst. Cannot exclude other neoplasm. Correlation with pelvic sonogram recommended. Head CT 08/31/17 14:21 IMPRESSION: Limited negative study EVIDENCE OF ACUTE STROKE: NO. KUB X-Ray 09/02/17 00:00 IMPRESSION: Mild gaseous distension, predominantly in the colon. Assessment & Plan - Diagnosis (1) Fall at home Qualifiers: Encounter type: initial encounter Qualified Code(s): W19.XXXA - Unspecified fall, initial encounter; Y92.099 - Unspecified place in other non- institutional residence as the place of occurrence of the external cause; Y92.099 - Unspecified place in other non-institutional residence as the place of occurrence of the external cause Is this a current diagnosis for this admission?: Yes (2) Alzheimer's dementia with behavioral disturbance Qualifiers: Alzheimer's disease onset: late-onset Qualified Code(s): G30.1 - Alzheimer' s disease with late onset; F02.81 - Dementia in other diseases classified elsewhere with behavioral disturbance; F02.81 - Dementia in other diseases classified elsewhere with behavioral disturbance; F02.81 - Dementia in other diseases classified elsewhere with behavioral disturbance Is this a current diagnosis for this admission?: Yes (3) HTN (hypertension) Qualifiers: Hypertension type: essential hypertension Qualified Code(s): I10 - Essential (primary) hypertension Is this a current diagnosis for this admission?: Yes (4) Diabetes mellitus type 2 in nonobese Is this a current diagnosis for this admission?: Yes (5) Generalized osteoarthritis of multiple sites Is this a current diagnosis for this admission?: Yes - Time Time Spent with patient: 25-34 minutes Medications reviewed and adjusted accordingly: Yes Anticipated discharge: SNF - for short term rehabilitation Within: within 48 hours - Inpatient Certification Based on my medical assessment, after consideration of the patient's comorbidities, presenting symptoms, or acuity I expect that the services needed warrant INPATIENT care.: Yes I certify that my determination is in accordance with my understanding of Medicare's requirements for reasonable and necessary INPATIENT services [42 CFR 412.3e].: Yes Medical Necessity: Need Close Monitoring Due to Risk of Patient Decompensation, Need For IV Fluids, Need For Continuous Telemetry Monitoring, Need for IV Antibiotics, Risk of Complication if Not Cared For in Hospital Post Hospital Care: D/C or Transfer Summary - Plan Summary Plan Summary: D/C IV Rocephin and IV fluid support. Possible transfer to SNF tomorrow for short term rehabilitation.
[2017-09-04] MEDS: FLUCONAZOLE 100 MG TABLET PO SCH (21:56)
[2017-09-05] MEDS: HEPARIN SOD (PORCINE) 5,000 UNIT/ML 1 ML SYRINGE SUBCUT SCH ×2 (05:05→12:50)
[2017-09-05] MEDS: METFORMIN HCL 500 MG TABLET PO SCH ×2 (05:06→12:53)
[2017-09-05] MEDS ORDERED: TUBERCULIN,PURIF.PROT.DERIV. 5 TU/0.1 ML TEST 1 ML VIAL ID ONE (11:00)
[2017-09-05] MEDS: POLYETHYLENE GLYCOL 3350 POWDER 17 GM/1 PACKET PO SCH (11:17)
[2017-09-05] MEDS: DOCUSATE SODIUM 100 MG CAPSULE PO SCH (11:18)
[2017-09-05] MEDS: GLIPIZIDE XL 5 MG TAB.ER.24 PO SCH (11:18)
[2017-09-05] MEDS: SIMETHICONE 80 MG TAB.CHEW PO SCH (11:18)
[2017-09-05] MEDS: CETIRIZINE 10 MG TABLET PO SCH (11:18)
[2017-09-05] MEDS: AMLODIPINE BESYLATE 2.5 MG TABLET PO SCH (11:18)
[2017-09-05] MEDS: BENAZEPRIL HCL 10 MG TABLET PO SCH (11:19)
[2017-09-05 12:19] VITALS: BP 148/72
[2017-09-05] MEDS: ACETAMINOPHEN 325 MG TABLET PO PRN (12:53)
--- NOTE | 2017-09-05 12:53 | PDOC TRANSFER SUMMARY ---
General - Admit/Disc Date/PCP Admission Date/Primary Care Provider: 08[facility]30[facility]17 18[facility] Discharge Date: 09/05/17 - Discharge Diagnosis (1) Fall at home Is this a current diagnosis for this admission?: Yes (2) Alzheimer's dementia with behavioral disturbance Is this a current diagnosis for this admission?: Yes (3) HTN (hypertension) Is this a current diagnosis for this admission?: Yes (4) Diabetes mellitus type 2 in nonobese Is this a current diagnosis for this admission?: Yes (5) Generalized osteoarthritis of multiple sites Is this a current diagnosis for this admission?: Yes - Additional Information Resuscitation Status: Full Code Home Medications: Amlodipine Besylate/Benazepril [Amlodipine-Benazepril 2.5-10] 1 cap PO DAILY Glipizide [Glipizide Xl] 10 mg PO QAM 08/29/17 Metformin HCl [Glucophage XR 500 mg Tablet] 1,500 mg PO QAM 08/29/17 Tramadol HCl/Acetaminophen [Ultracet Tablet] 1 tab PO TIDP PRN 08/29/17 Docusate Sodium [Colace 100 mg Capsule] 100 mg PO BID capsule 09/05/17 Mag Hydrox/Al Hydrox/Simeth [Maalox Plus Susp 30 Udcup] 15 ml PO Q6HP PRN udc 09/05/17 Polyethylene Glycol 3350 [Miralax Powder 17 gm/Packet] 17 gm PO DAILY powd.pack 09/05/17 History of Present Illness Admission Date/PCP: 08/30/17 18:53 [facility] Patient complains of: Fall at home and inability to get off the floor History of Present Illness: TIFFANY FITZGERALD is a 87 year old female with a history of diabetes and advanced dementia but socially appropriate living independently. Who presents after sliding onto the floor and unable to get back on her feet prompting her call to EMS via life alert. In the emergency room she is a very vague historian but complains of right-sided abdominal pain, denies chest pain, shortness of breath nausea or vomiting. In the emergency room she has a urinalysis suggestive of urinary tract infection and a CT negative for stone, pyelonephritis or abscess but shows distal ureteritis. She has intractable abdominal pain unable to stand subsequently started on empiric antibiotics refer the hospitalist for admission. Hospital Course Hospital Course: Patient was admitted for fall and probable UTI. She did respond to IV fluid support and antibiotic therapy. Her blood culture was no growth after 5 days and antibiotic was discontinued. Her urine culture grew Catalina species and she has been on oral Diflucan therapy for appropriate therapy time. Patient continue to participate in physical therapy. She has remain afebrile over last 48 hours. Her PPD testing was recorded as negative. Patient has baseline dementia with paranoid delusional behaviour. Family at this point are willing to have patient placed in SNF for short term rehabilitation. Her eventual disposition with be into [facility]IDENTIAL or 24 hours supervised environment at home. She will follow up in the office upon discharge for the SNF facility. Physical Exam Vital Signs: Temp Pulse Resp BP Pulse Ox 97.8 F 91 18 148/72 H 97 09/05/17 11:15 09/05/17 11:15 09/05/17 11:15 09/05/17 11:15 09/05/17 11:15 Intake & Output 09/04/17 09/05/17 09/06/17 06:59 06:59 06:59 Intake Total 1465 1738 Output Total 3 Balance 1462 1738 Weight 79.7 kg 79.7 kg General appearance: PRESENT: no acute distress, cooperative Head exam: PRESENT: atraumatic, normocephalic Eye exam: PRESENT: conjunctiva pink, EOMI, PERRLA. ABSENT: scleral icterus Mouth exam: PRESENT: moist Respiratory exam: PRESENT: clear to auscultation margie Cardiovascular exam: PRESENT: RRR. ABSENT: diastolic murmur, rubs, systolic murmur Vascular exam: PRESENT: normal capillary refill. ABSENT: pallor GI/Abdominal exam: PRESENT: normal bowel sounds, soft. ABSENT: distended, guarding, mass, organomegaly, rebound, tenderness Extremities exam: ABSENT: pedal edema Musculoskeletal exam: PRESENT: normal inspection Neurological exam: PRESENT: alert - but demonstrate obvious baseline memory impairment, awake Psychiatric exam: PRESENT: appropriate affect, normal mood. ABSENT: homicidal ideation, suicidal ideation Skin exam: PRESENT: dry, intact, warm. ABSENT: cyanosis, rash Results Laboratory Results: 09/03/17 05:32 09/04/17 06:59 Impressions: Pelvis X-Ray 08/28/17 23:44 IMPRESSION: NEGATIVE STUDY OF THE PELVIS. Cervical Spine CT 08/28/17 23:45 IMPRESSION: No acute findings. Abdomen/Pelvis CT 08/29/17 00:41 IMPRESSION: 1. Mild right distal ureteral wall thickening may indicate ureteritis. 2. A stable 3.6 cm cystic component of the right adnexa probably due to a prominent follicular cyst. Cannot exclude other neoplasm. Correlation with pelvic sonogram recommended. Head CT 08/31/17 14:21 IMPRESSION: Limited negative study EVIDENCE OF ACUTE STROKE: NO. KUB X-Ray 09/02/17 00:00 IMPRESSION: Mild gaseous distension, predominantly in the colon. Transfer Plan - Disposition Transfer Plan: Patient will be transferred to [facility] for short term rehabilitation today. Qualifiers PATEINT BEING DISCHARGED WITH ANY OF THE FOLLOWING DIAGNOSIS?: No Plan Discharge Plan: Transfer to [facility] for short term rehabilitation.
== END 2017-09-05 13:50 | DRG 758 ==
LOC: ER 23:31 → UNDOADMOB 08-29 03:58 → EH 08-29 03:58 → 4W 08-29 10:22 → 5 08-30 17:20 → OBSVTOIN 08-30 18:53 → INTOOBSV 08-30 18:53
PROVIDERS: ADMIT Internal Medicine Geriatric Medicine; ATTEND Internal Medicine Geriatric Medicine
DX: B37.49 Other urogenital candidiasis (principal); F02.81 Dementia in other diseases classified elsewhere, unspecified severity, with behavioral disturbance; G30.1 Alzheimer's disease with late onset; I10 Essential (primary) hypertension; E11.9 Type 2 diabetes mellitus without complications; K21.9 Gastro-esophageal reflux disease without esophagitis; M15.9 Polyosteoarthritis, unspecified; Z79.84 Long term (current) use of oral hypoglycemic drugs; Z79.899 Other long term (current) drug therapy; Z90.49 Acquired absence of other specified parts of digestive tract; Z90.710 Acquired absence of both cervix and uterus; Z90.12 Acquired absence of left breast and nipple
CPT/HCPCS: 36415; 70450; 72125; 72170; 74000; 74177; 80048; 80053; 81001; 82550; 82553; 82962; 83690; 84484; 85025; 87040; 87086; 96361; 96365; 96372; 99285; J0696; J1644; J1815; J3490; J7030; J7040